=== PATIENT | female | born 1980 | race Hispanic/Latino ===

== ENCOUNTER 2019-06-10 02:03 | Emergency (ER) | payer OTHER, SELFPAY ==
[2019-06-10] MEDS ORDERED: NA CHLORIDE 0.9% 1,000 ML ONE (02:51)
[2019-06-10] MEDS ORDERED: ONDANSETRON 4 MG/2 ML VIAL ONE (02:51)
[2019-06-10] MEDS ORDERED: MEPERIDINE HCL 25 MG/0.5 ML ONE (02:51)
[2019-06-10 02:55] LABS: Absolute Lymphocytes (CBC) 1.6 K/uL (0.7-4.9); Basophils % 0.5 % (0-1.3); Hematocrit 35.9 % (36.0-45.0); Lymphocytes % 17.8 % (15.3-44.8); RBC Red Blood Cell Count 4.21 M/uL (3.86-4.86)
[2019-06-10 03:11] LABS: Bilirubin Direct 0.1 mg/dL (0-0.2); Bilirubin Total 0.2 mg/dL (0.2-1.0); Protein, Total 7.6 g/dL (6.4-8.2)
[2019-06-10 05:32] LABS: Urine Culture Reflex Order REFLEXED; Urine RBC <5 /HPF (NONE SEEN)
[2019-06-10 05:33] LABS: Urine Bacteria >50 /HPF (<20)
--- NOTE | 2019-06-10 05:43 | ER ---
Nurse's Notes [facility] Name: Zeynep Negron Age: 39 yrs Sex: Female : 1980 Arrival Date: 06/10/2019 Time: 02:14 Bed 14 Private MD: Diagnosis: Upper abdominal pain, unspecified Presentation: 06/10 02:28 Presenting complaint: Patient states: she is having severe abdominal pain since approx bb 0100 this morning with vomiting, the pain is in the lower abdomen is constant and currently is 10/10. Transition of care: patient was not received from another setting of care. Onset of symptoms was June 10, 2019. Risk Assessment: Do you want to hurt yourself or someone else? Patient reports no desire to harm self or others. Initial Sepsis Screen: Does the patient meet any 2 criteria? No. Patient's initial sepsis screen is negative. Does the patient have a suspected source of infection? No. Patient's initial sepsis screen is negative. Care prior to arrival: None. 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 - Social history:: Smoking status: Patient uses tobacco products, denies chronic smoking, but will smoke occasionally. - Ebola Screening: : No symptoms or risks identified at this time. - Family history:: not pertinent. - Hospitalizations: : No recent hospitalization is reported. Screenin:00 Abuse screen: Denies threats or abuse. Nutritional screening: No deficits noted. ea Tuberculosis screening: No symptoms or risk factors identified. Fall Risk None identified. Assessment: 02:43 General: Appears uncomfortable, Behavior is appropriate for age. Pain: Complains of ea pain in right lower quadrant and left lower quadrant. Neuro: Level of Consciousness is awake, alert, obeys commands, Oriented to person, place, time, situation. Respiratory: Airway is patent Respiratory effort is even, unlabored, Respiratory pattern is regular, symmetrical. GI: Bowel sounds present X 4 quads. Abd is soft and non tender X 4 quads. Derm: Skin is pink, warm \T\ dry. 03:30 Reassessment: Patient and/or family updated on plan of care and expected duration. Pain ea level reassessed. Patient is alert, oriented x 3, equal unlabored respirations, skin warm/dry/pink. 04:30 Reassessment: Patient and/or family updated on plan of care and expected duration. Pain ea level reassessed. Patient is alert, oriented x 3, equal unlabored respirations, skin warm/dry/pink. 05:00 Reassessment: Patient and/or family updated on plan of care and expected duration. Pain ea level reassessed. Patient is alert, oriented x 3, equal unlabored respirations, skin warm/dry/pink. 06:52 Reassessment: Patient and/or family updated on plan of care and expected duration. Pain ea level reassessed. Patient is alert, oriented x 3, equal unlabored respirations, skin warm/dry/pink. Discharge instruction given to patient, verbalized the understanding of instruction. Pt left ED ambulatory accompanied by significant other. Patient states feeling better. Vital Signs: 02:29 BP 132 / 97; Pulse 120; Resp 16 S; Temp 98.9(O); Pulse Ox 99% on R/A; Weight 74.84 kg bb (R); Height 5 ft. 4 in. (162.56 cm) (R); Pain 10/10; 03:54 BP 117 / 92; Pulse 97; Resp 18; Pulse Ox 100% ; ea 04:00 BP 115 / 90; Pulse 102; Resp 18; Pulse Ox 97% ; ea 05:00 BP 120 / 87; Pulse 90; Resp 18; Pulse Ox 99% on R/A; ea 05:00 BP 118 / 80; Pulse 87; Resp 18; Temp 97.8; Pulse Ox 99% ; ea 02:29 Body Mass Index 28.32 (74.84 kg, 162.56 cm) bb ED Course: 02:14 Patient arrived in ED. ag3 02:26 Finn Hare MD is Attending Physician. rn 02:29 Triage completed. bb 02:29 Arm band placed on Patient placed in an exam room, on a stretcher, on pulse oximetry. bb Family accompanied patient. 02:43 Carlie Farley, EDWIN is Primary Nurse. ea 03:00 Patient has correct armband on for positive identification. Bed in low position. Call ea light in reach. Side rails up X2. 06:50 IV discontinued, intact, bleeding controlled, No redness/swelling at site. Pressure ea dressing applied. 06:53 No provider procedures requiring assistance completed. ea 20:28 CT Abd/Pelvis - IV Contrast Only In Process Unspecified. EDMS Administered Medications: 02:55 Drug: Demerol 25 mg {Note: RASS 1.} Route: IVP; Site: right antecubital; ea 03:30 Follow up: Response: No adverse reaction; Pain is decreased ea 02:56 Drug: Zofran 4 mg Route: IVP; Site: right antecubital; ea 03:30 Follow up: Response: No adverse reaction ea 02:57 Drug: NS 0.9% 1000 ml Route: IV; Rate: 1000 ml; Site: right antecubital; ea 03:30 Follow up: Response: No adverse reaction; IV Status: Completed infusion; IV Intake: ea 1000ml Intake: 03:30 IV: 1000ml; Total: 1000ml. ea Outcome: 05:43 Discharge ordered by . rn 06:54 Discharged to home ambulatory, with significant other. ea 06:54 Condition: stable 06:54 Discharge instructions given to patient, Instructed on discharge instructions, follow up and referral plans. medication usage, Demonstrated understanding of instructions, follow-up care, medications, Prescriptions given X 2. 07:00 Patient left the ED. ea Signatures: Dispatcher [employer] EDMS Asmita Aguirre RN RN bb Nieto, Roman, MD MD rn Antunez, Elena, RN RN ea Gomez, Alice ag3
--- NOTE | 2019-06-10 05:44 | EDPHYS ---
Physician Documentation [facility] Name: Zeynep Negron Age: 39 yrs Sex: Female : 1980 Arrival Date: 06/10/2019 Time: 02:14 Bed 14 Private MD: ED Physician Finn Hare HPI: 06/10 02:39 This 39 yrs old Female presents to ER via Ambulatory with complaints of rn Abdominal Pain. 02:39 The patient presents with abdominal pain that is diffuse. Onset: The symptoms/episode rn began/occurred today. The symptoms do not radiate. Associated signs and symptoms: Pertinent positives: nausea and vomiting, diarrhea, Pertinent negatives: blood in stools, fever, shortness of breath, vaginal discharge, vomiting blood. The symptoms are described as crampy, sharp. Modifying factors: The symptoms are alleviated by nothing, the symptoms are aggravated by touching the area. Severity of pain: At its worst the pain was moderate in the emergency department the pain is unchanged. The patient has experienced similar episodes in the past. Reports has Crohns', doesn't take medication because of lack of money, reports sudden onset of diffuse abd pain with vomiting and diarrhea, this AM, approx 2 hours ago. NO trauma. + subjective fever. . 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 - Social history:: Smoking status: Patient uses tobacco products, denies chronic smoking, but will smoke occasionally. - Ebola Screening: : No symptoms or risks identified at this time. - Family history:: not pertinent. - Hospitalizations: : No recent hospitalization is reported. ROS: 02:39 Constitutional: + subjective fever Eyes: Negative for injury, pain, redness, and varnisher, Neck: Negative for injury, pain, and swelling, Cardiovascular: Negative for chest pain, palpitations, and edema, Respiratory: Negative for shortness of breath, cough, wheezing, and pleuritic chest pain, Abdomen/GI: + abd pain with nausea/vomiting/diarrhea Back: Negative for injury and pain, : Negative for injury, bleeding, discharge, and swelling, MS/Extremity: Negative for injury and deformity, Skin: Negative for injury, rash, and discoloration, Neuro: Negative for headache, weakness, numbness, tingling, and seizure. Exam: 02:39 Constitutional: This is a well developed, well nourished patient who is awake, alert, rn appears uncomfortable Head/Face: Normocephalic, atraumatic. Eyes: Pupils equal round and reactive to light, extra-ocular motions intact. Lids and lashes normal. Conjunctiva and sclera are non-icteric and not injected. Cornea within normal limits. Periorbital areas with no swelling, redness, or edema. ENT: MMM Neck: Trachea midline, no thyromegaly or masses palpated, and no cervical lymphadenopathy. Supple, full range of motion without nuchal rigidity, or vertebral point tenderness. No Meningismus. Cardiovascular: tachycardic, regular Respiratory: No increased work of breathing, no retractions or nasal flaring. Abdomen/GI: soft, + tender in all 4 quadrants, no rebound MS/ Extremity: Pulses equal, no cyanosis. Neurovascular intact. Full, normal range of motion. Equal circumference. Neuro: Awake and alert, GCS 15, oriented to person, place, time, and situation. Cranial nerves II-XII grossly intact. Motor strength 5/5 in all extremities. Sensory grossly intact. Cerebellar exam normal. Vital Signs: 02:29 BP 132 / 97; Pulse 120; Resp 16 S; Temp 98.9(O); Pulse Ox 99% on R/A; Weight 74.84 kg bb (R); Height 5 ft. 4 in. (162.56 cm) (R); Pain 10/10; 03:54 BP 117 / 92; Pulse 97; Resp 18; Pulse Ox 100% ; ea 04:00 BP 115 / 90; Pulse 102; Resp 18; Pulse Ox 97% ; ea 05:00 BP 120 / 87; Pulse 90; Resp 18; Pulse Ox 99% on R/A; ea 05:00 BP 118 / 80; Pulse 87; Resp 18; Temp 97.8; Pulse Ox 99% ; ea 02:29 Body Mass Index 28.32 (74.84 kg, 162.56 cm) MDM: 02:26 Patient medically screened. rn 05:42 Differential diagnosis: appendicitis, cholecystitis, Cholelithiasis, diverticulitis, rn non-specific abd pain, Ureterolithiasis, urinary tract infection, crohn's. Data reviewed: vital signs, nurses notes, lab test result(s), radiologic studies, CT scan, and as a result, I will discharge patient. Counseling: I had a detailed discussion with the patient and/or guardian regarding: the historical points, exam findings, and any diagnostic results supporting the discharge/admit diagnosis, lab results, radiology results, the need for outpatient follow up, to return to the emergency department if symptoms worsen or persist or if there are any questions or concerns that arise at home. Response to treatment: the patient's symptoms have markedly improved after treatment, and as a result, I will discharge patient. Special discussion: I discussed with the patient/guardian in detail that at this point there is no indication for admission to the hospital. It is understood, however, that if the symptoms persist or worsen the patient needs to return immediately for re-evaluation. ED course: Neg CT for acute findings, will dc home with zofran/pain meds/bentyl and return precautions.. 06/10 02:38 Order name: Basic Metabolic Panel 06/10 02:38 Order name: CBC with Diff 06/10 02:38 Order name: Creatinine for ornamenter 06/10 02:38 Order name: Hepatic Function 06/10 02:38 Order name: Lipase 06/10 02:38 Order name: Urine Microscopic Only 06/10 02:38 Order name: CT Abd/Pelvis - IV Contrast Only 06/10 03:05 Order name: CBC with Automated Diff; Complete Time: 05: [facility] 06/10 03:10 Order name: Creatinine (Radiology Only); Complete Time: : [facility] 06/10 03:12 Order name: Basic Metabolic Panel; Complete Time: 05: [facility] 06/10 03:12 Order name: Liver (Hepatic) Function; Complete Time: 05: [facility] 06/10 03:12 Order name: Lipase; Complete Time: 05: [facility] 06/10 05:34 Order name: Urine Microscopic Only [facility] 06/10 02:38 Order name: IV Saline Lock; Complete Time: 02:57 06/10 02:38 Order name: Labs collected and sent; Complete Time: 02:57 06/10 02:38 Order name: Urine Test (obtain specimen); Complete Time: 03:57 rn 06/10 02:38 Order name: Urine Dipstick-Ancillary (obtain specimen); Complete Time: 03:57 rn Administered Medications: 02:55 Drug: Demerol 25 mg {Note: RASS 1.} Route: IVP; Site: right antecubital; ea 03:30 Follow up: Response: No adverse reaction; Pain is decreased ea 02:56 Drug: Zofran 4 mg Route: IVP; Site: right antecubital; ea 03:30 Follow up: Response: No adverse reaction ea 02:57 Drug: NS 0.9% 1000 ml Route: IV; Rate: 1000 ml; Site: right antecubital; ea 03:30 Follow up: Response: No adverse reaction; IV Status: Completed infusion; IV Intake: ea 1000ml Disposition: 06/10/19 05:43 Discharged to Home. Impression: Upper abdominal pain, unspecified. - Condition is Stable. - Discharge Instructions: Abdominal Pain, Adult. - Prescriptions for Zofran ODT 4 mg Oral tablet,disintegrating - place 1 tablet by TRANSLINGUAL route every 8 hours; 2 tablet. Bentyl 20 mg Oral Tablet - take 1 tablet by ORAL route every 6 hours As needed; 20 tablet. - Medication Reconciliation Form, Thank You Letter, Antibiotic Education, Prescription Opioid Use form. - Follow up: Private Physician; When: As needed; Reason: Recheck today's complaints, Re-evaluation by your physician. - Problem is new. - Symptoms have improved. Signatures: Dispatcher [employer] EDMS Asmita Aguirre RN RN bb Nieto, Roman, MD MD rn Antunez, Elena, RN RN ea Corrections: (The following items were deleted from the chart) 07:00 05:43 06/10/2019 05:43 Discharged to Home. Impression: Upper abdominal pain, ea unspecified. Condition is Stable. Forms are Medication Reconciliation Form, Thank You Letter, Antibiotic Education, Prescription Opioid Use. Follow up: Private Physician; When: As needed; Reason: Recheck today's complaints, Re-evaluation by your physician. Problem is new. Symptoms have improved. rn
[2019-06-10 07:21] VITALS: BP 118/80; TEMP 97.8; O2SAT 99
--- NOTE | 2019-06-11 12:04 | RAD REPORT ---
EXAM DESCRIPTION: CT Abdomen and Pelvis With Intravenous Contrast CLINICAL HISTORY: The patient is 39 years old and is Female; hx of crohns;Abd pain TECHNIQUE: Axial computed tomography images of the abdomen and pelvis with intravenous contrast. S agittal and coronal reformatted images were created and reviewed. This CT exam was performed using one or more of the following dose reduction techniques: automated exposure control, adjustment of t he mA and/or kV according to patient size, and/or use of iterative reconstruction technique. COMPARISON: No relevant prior studies available. FINDINGS: LUNG BASES: Unremarkable. No mass. No consolidation. ABDOMEN: LIVER: Unremarkable. No mass. GALLBLADDER AND BILE DUCTS: Surgical clips are present in the right upper quadrant, consistent w ith previous cholecystectomy. PANCREAS: No ductal dilation. No mass. SPLEEN: Unremarkable. ADRENALS: Unremarkable. No mass. KIDNEYS AND URETERS: Right renal cysts are present, the largest of which measures approximately 1.1 cm. No follow-up imaging is recommended. The kidneys enhance symmetrically. No hydronephrosis or hydroureter of either kidney is seen. STOMACH AND BOWEL: Postsurgical change of the stomach consistent with a gastric sleeve is noted. The small bowel is normal in caliber. A moderate amount of stool is present throughout the colon. Th ere is no mucosal thickening or evidence of bowel obstruction. PELVIS: APPENDIX: No findings to suggest acute appendicitis. BLADDER: Unremarkable. No mass. REPRODUCTIVE: Suggestion of a few small uterine fibroids are present. A 1.6 cm left ovarian cyst is present. No follow-up imaging is recommended. The right ovary is unremarkable. ABDOMEN and PELVIS: INTRAPERITONEAL SPACE: Unremarkable. No free air. No significant fluid collection. BONES/JOINTS: No acute fracture. SOFT TISSUES: The soft tissues are normal. VASCULATURE: Unremarkable. No abdominal aortic aneurysm. LYMPH NODES: Unremarkable. No enlarged lymph nodes. IMPRESSION: No acute findings on this contrasted CT of the abdomen and pelvis to explain the patient 's symptoms. Electronically signed by: Mar Hartmann MD 06/10/2019 5:27 AM CDT Due to temporary technical issues with the PACS/Fluency reporting system, reports are being signed by the in house radiologist as a courtesy to ensure prompt reporting. The interpreting radiologist is f ully responsible for the content of the report.
== END 2019-06-10 07:00 | disposition home or self-care (01) ==
LOC: ER 02:03
DX: R10.10 Upper abdominal pain, unspecified (principal); Z72.0 Tobacco use; Z88.5 Allergy status to narcotic agent
CPT/HCPCS: 36415; 74177; 80048; 80076; 81015; 83690; 85025; 87077; 87086; 87088; 87186; 96361; 96374; 96375; 99284; J2175; J2405; J7030; Q9967

== ENCOUNTER 2021-12-15 05:11 | Emergency (ER) | payer SELFPAY ==
--- OUTSIDE RECORDS SUMMARY | 2021-12-15 05:15 | XMS REPORT | Continuity of Care Document ---
:1980 Author Organization [facility] t Address Critical access hospital[address] Egan [address] [place] [id number] Care Team Providers Name Role Phone AHMED Attending Clinician Unavailable Payers Payer Name Policy Type Policy Number Effective Date Expiration Date S ource PPO/EPO - BCBS [id number] Problems This patient has no known problems. Allergies, Adverse Reactions, Alerts This patient has no known allergies or adverse reactions. Medications This patient has no known medications. Procedures This patient has no known procedures. Encounters Start End Encounter Admission Attending Care Care Encounter Source Date/Time Date/Time Type Type Clinicians Facility Department ID 2021-12-08 2021-12-08 Outpatient [facility] [id number] [facility] 12:51:23 16:09:32 [facility] [employer] 2021-11-06 2021-11-06 Outpatient [facility] [id number] [facility] 10:19:35 12:44:56 [facility] [employer] 2021-10-13 2021-10-13 Outpatient [facility] [id number] [facility] 12:12:38 14:57:55 [facility] [employer] 2021-09-29 2021-09-29 [facility] [id number] [facility] 12:57:38 14:11:45 [facility] [employer] 2021-09-15 2021-09-15 Outpatient [facility] [id number] [facility] 13:19:37 15:41:16 [facility] [employer] 2021-06-19 2021-06-19 Outpatient [facility] [id number] [facility] 08:20:05 15:26:53 [facility] [employer] Results Test Description Test Time Test Comments Results Result Comments Source SARS-CoV-2 (COVID-19), RT-PCR/TMA 2021-10-08 16:26:54 Test Item Value Reference Range Interpretation Comme nts SARS-CoV-2 INTERPRETATION NEGATIVE SEE NOTE S ARS-CoV-2 RNA NOT (test code = 44251) DETECTED Negative results do not preclude SARS-C oV-2 infection and should notb e used as the sole basis for patient management deci sions. Negativeresults must be combined with clinical o bservations, patient history ,and epidemiological information. Optimum specime n types and timingfor peak viral levels during infectio ns caused by SARS-CoV-2 have notbeen determined. Col lection of multiple specim ens or types ofspecimens may be necessary to detect virus. I mproper specimencollect ion and handling, sequence variab ility under primers/probes, or organism present below t he limit of detection may l ead to falsenegative r esults. Positive and negative pr edictive values oftesting are h ighly dependent on prevalence. False negative testresults are more likely when prevalence is h igh. SOURCE (test code = 78631) NASOPHARYNGEAL Note: Methodology is Salma Karissa Real-Time RT-PCR. The expected r esult or reference range is NEGATIVE (Not Detected). For more information regarding COVID -19 testing to include clinica linformation, methodology det ail, intended use, FDA author ization andrecommended fact sheets for patients or a lthcare providers, see NewTest Announcement: S ARS-CoV-2 (COVID-19) by N AAT at URL below (note,fact shee ts are provided by method given in report:https:// www.eSentire/c linicians/enid t-communications/ Alternatively, see downloadable PDF fact sheet at:https://www. eSentire/COVID -19-RT-PCR UNLESS OTHERWISE INDIC ATED, ALL TESTING PERFORMED [facility], I [place]. [address] [place] [address] LABORATORY DIRE CTOR: OMER CRESPO M.D. CLIA NUMBER [id number] [place]. [id number] BREAST STEREO CORE BIOPSY [id number] 12:46:25- BREAST STEREO CORE BIOPSY LEFTSTEREOTACTIC GUIDED BIOPSY LEFT BREAST WITH MARKING DEVICE INSERTED: 10/30/2019CLINICAL: Stereotactic biopsy, left breast. Comparison is made to exam dated 10/10/2019 mammogram - [facility]. A stereotactic guided biopsy was performed for the oval mass located in the left breast at 9 o'clock, posterior depth. This was described on the previous mammography report. The skin was prepped in the usual manner. Local anesthetic was administered to the access site. The abnormality was approached from the craniocaudal aspect using an upright mammography unit. A biopsy needle was placed adjacent to the abnormality under computer guidance and confirmatory stereotactic mammography images were obtained to document needle placement. Once the needle was docume nted to be in the correct location, a specimen was obtained using an automated biopsy gun. A clip was inserted into the biopsy cavity. The specimen was sent to the laboratory for pathological analysis. IMPRESSION: STEREOTACTIC GUIDED BIOPSYStereotactic guided biopsy of the mass in the left breast at 9 o'clock, posterior depth, was successful with no apparent post procedure complications. Waiting for pathology results. A final report will be issued when these become available. Of note, previousdiagnostic report has 6 month follow up for the right breast findings. ADDENDUM:PATHOLOGY INDICATES:Fibroadenoma in the left breast at 9 o'clock, 10 cm from nipple. Benign, BI-RADS Category 2.RECOMMEND ATION:Follow up ultrasound in six month is recommended to milly Wan M.D.ss,qn/:11/06/2019 12:46:25 Attending Technologist: Raquel Yeung , [facility]ITALImaging Technologist: Nova MAGUIRE, [facility]CR[facility] HOSPITALletter sent: Benign BiopsyBREAST STEREO CORE BIOPSY [id number] 12:46:25- BREAST STEREO CORE BIOPSY LEFTSTEREOTACTIC GUIDED BIOPSY LEFT BREAST WITH MARKING DEVICE INSERTED: 10/30/2019CLINICAL: Stereotactic biopsy, left breast. Comparison is made to exam dated 10/10/2019 [facility]. A stereotactic guided biopsy was performed for the oval mass located in the left breast at 9 o'clock, posterior depth. This was described on the previous mammography report. The skin was prepped in the usual manner. Local anesthetic was administered to the access site. The abnormality was approached from the craniocaudal aspect using an upright mammography unit. A biopsy needle was placed adjacent to the abnormality under computer guidance and confirmatory stereotactic mammography images were obtained to document needle placement. Once the needle was docume nted to be in the correct location, a specimen was obtained using an automated biopsy gun. A clip was inserted into the biopsy cavity. The specimen was sent to the laboratory for pathological analysis. IMPRESSION: STEREOTACTIC GUIDED BIOPSYStereotactic guided biopsy of the mass in the left breast at 9 o'clock, posterior depth, was successful with no apparent post procedure complications. Waiting for pathology results. A final report will be issued when these become available. Of note, previousdiagnostic report has 6 month follow up for the right breast findings. ADDENDUM:PATHOLOGY INDICATES:Fibroadenoma in the left breast at 9 o'clock, 10 cm from nipple. Benign, BI-RADS Category 2.RECOMMEND ATION:Follow up ultrasound in six month is recommended to milly Wan M.D.ss,qn/:11/06/2019 12:46:25 Attending Technologist: Raquel MAGUIRE, [facility]-FWImaging Technologist: Nova MAGUIRE, [facility]-FWletter sent: Benign BiopsyDIAG MAMM LEFT JANEE CAD [id number] 09:22:40 - DIAG MAMM LEFT JANEE CAD DIGITALUNILATERAL LEFT DIGITAL DIAGNOSTIC MAMMOGRAM 3D/2D WITH CAD: 020CLINICAL: Asymptomatic. Digital breast tomosynthesis was performed in addition to routine CC andMLO views. Current mammographic images were evaluated by either a CreatorBox M-Vu or a SmartKemgic ImageChecker CAD (computer aided detection system). Comparison is made to exam dated 08/31/2019 mammogram - [facility]. The tissue of the left breast is heterogeneously dense. This may lower the sensitivity of mammography. There is an equal density 1.5 cm lobulated focal asymmetry in the inner central left breast (9 o'clock, 10 cm from the nipple) at posterior depth (LSCC 24, LSLM 19). No other significant findings. IMPRESSION: INCOMPLETE: ADDITIONAL IMAGING EVALUATION NEEDEDUltrasound was subsequently performed for further evaluation.Idalia bhakta/:10/11/2019 09:22:40 Entry: - 10/11/2019 11:17:07Imaging Technologist: Jackie MAGUIRE, [facility]amm[facility] BI-RADS: 0 Incomplete: Additional Imaging Evaluation NeededDIAG MAMM LEFT JANEE CAD [id number] 09:22:40 - DIAG MAMM LEFT JANEE CAD DIGITALUNILATERAL LEFT DIGITAL DIAGNOSTIC MAMMOGRAM 3D/2D WITH CAD: 10/10/2019CLINICAL: Asymptomatic. Digital breast tomosynthesis was performed in addition to routine CC andMLO views. Current mammographic images were evaluated by either a CreatorBox M-Vu or a Rival IQ ImageMaya's Momer CAD (computer aided detection system). Comparison is made to exam dated 08/31/2019 mammogram - [facility]. The tissue of the left breast is heterogeneously dense. This may lower the sensitivity of mammography. There is an equal density 1.5 cm lobulated focal asymmetry in the inner central left breast (9 o'clock, 10 cm from the nipple) at posterior depth (LSCC 24, LSLM 19). No other significant findings. IMPRESSION: INCOMPLETE: ADDITIONAL IMAGING EVALUATION NEEDEDUltrasound was subsequently performed for further evaluation.Idalia bhakta/:10/11/2019 09:22:40 Entry: - 10/11/2019 11:17:07Imaging Technologist: Jackie MAGUIRE, [facility]-FWMammogram BI-RADS: 0 Incomplete: Additional Imaging Evaluation Needed BREAST ULTRASOUND [id number] 09:22:11- BREAST ULTRASOUND BILATERALULTRASOUND OF BOTH BREASTS AND BOTH AXILLA: 10/10/2019CLINICAL: Abnormal mammogram. Comparison is made to exams dated 10/10/2019 mammogram - [facility] and 08/31/2019 mammogram - [facility]. Real- time ultrasound of both breasts and both axilla was performed. RIGHT BREAST:There is a 9 x 6 x 8 mm oval homogenously hypoechoic mass with a circ umscribed margin in the right breast at 11 o'clock, middle depth, 7 cm from the nipple. No internalvascularity seen with color flow imaging. This correlates with mammography findings seen on recent screening mammography. LEFT BREAST:No sonographic correlate is identified at 9 o'clock, 10 cm from the nipple, to account for the focal asymmetry seen on mammography.A benign 7 mm cyst is noted in the left breast at 10 o'clock, posterior depth, 9 cm from the nipple. Additional scattered benign subcentimeter cysts are seen in both breasts. There is no bilateral axillary lymphadenopathy seen.IMPRESSION: SUSPICIOUS OF MALIGNANCY - FOLLOW-UP RECOMMENDED1. No sonographic correlate was identified for the 1.5 cm lobulated focal asymmetry seen on mammogram in the inner central left breast (9 o'clock, 10 cm from the nipple) at posterior depth (LSCC 24, LSLM 19). This finding is at low suspicion for malignancy. A tomosynthesis guided biopsy is recommended (consider a CC approach). (Discussed with the patient on 10/11/2019 at 8:44 AM). 2. The 9 mm oval circumscribed mass in the right breast at 11 o'clock, 7 cm from the nipple, is probably benign. A follow-up ultrasound in 6 months of the right breastmass is recommended. However, if the recommended biopsy mentioned in #1 above yields a surgical lesion on final pathology, then ultrasound guided biopsy of this mass may also then be considered at that time (as opposed to short interval ultrasound follow up). Findings and recommendations were discussed with the patient. Idalia Reddy D.O. al/:10/11/2019 09:22:11 [employer] Crew Pusher: Katiana MAGUIRE,[facility]- FWletter sent: BIRADS 4/5 Biopsy Ultrasound BI-RADS: 4a Suspicious abnormality - low suspicion for malignancySCR MAMM BILATERAL JANEE CAD [id number] 11:05:50 - SCR MAMM BILATERAL JANEE CAD DIGITALBILATERAL DIGITAL SCREENING MAMMOGRAM 3D/2D WITH CAD: 08/31/2019CLINICAL: Asymptomatic. Digital breast tomosynthesis was performed in addition to routine CC and MLO views. Current mammographic images were evaluated by either a CreatorBox M-Vu or a R[employer] IQ ImageChecker CAD (computer aided detection system). No prior exams were available for comparison. The tissue of both breasts is heterogeneously dense. This may lower the sensitivity of mammography. There is a mass in the right breast at 11 o'clock middle depth. There is a focal asymmetry in the left breast at9 o'clock posterior depth. No other significant masses or calcifications are seen in either breast. IMPRESSION: INCOMPLETE: ADDITIONAL IMAGING EVALUATION NEEDEDThe mass in the right breast at 11 o'clock middle depth is indeterminate. An ultrasound is recommended. The focal asymmetry in the left breast at 9 o'clock posterior depth is indeterminate. 3D imaging, spot compression, lateral, and additional views as well as a possible ultrasound are recommended. Randall Daniels M.D. et/:09/03/2019 11:05:50 [employer] Crew Pusher: Daniella Chua MM, [facility] Mammographyletter sent: Additional Imaging Mammogram BI-RADS: 0 Incomplete: Additional Imaging Evaluation Needed
[2021-12-15] MEDS ORDERED: NA CHLORIDE 0.9% 1,000 ML ONE (06:12)
[2021-12-15] MEDS ORDERED: METOCLOPRAMIDE 10 MG/2mL INJ ONE (06:12)
[2021-12-15] MEDS ORDERED: DIPHENHYDRAMINE 50 MG/ML VIAL ONE (06:12)
[2021-12-15] MEDS ORDERED: MORPHINE 4 MG/ML SYR ONE (06:12)
[2021-12-15] MEDS ORDERED: FOLIC ACID 5 MG/ML VIAL ONE (06:13)
[2021-12-15] MEDS ORDERED: NA CHLORIDE 0.9% 500 ML ONE (06:13)
[2021-12-15 06:18] LABS: Absolute Lymphocytes (CBC) 2.1 K/uL (0.7-4.9); Hematocrit 39.2 % (36.0-45.0); Lymphocytes % 35.4 % (15.3-44.8); MPV 7.5 fL (7.6-11.3)
[2021-12-15 06:24] LABS: Protime INR 0.98
[2021-12-15 06:25] LABS: Urine Blood Negative (Negative); Urine Glucose Negative (Negative); Urine Protein Negative (Negative); Urine Specific Gravity >=1.030 (1.005-1.030)
[2021-12-15 06:50] LABS: Urine Specific Gravity/Preg >1.030 (1.005-1.030)
[2021-12-15 06:53] LABS: BUN Blood Urea Nitrogen 16 mg/dL (7-18); Bicarbonate 27 mmol/L (21-32); Glucose Level 99 mg/dL (74-106); Potassium 3.6 mmol/L (3.5-5.1); Sodium Level 139 mmol/L (136-145)
[2021-12-15 06:54] LABS: Troponin High Sensitivity < 3.00 pg/mL (<58.9)
--- NOTE | 2021-12-15 07:30 | RAD REPORT ---
EXAM DESCRIPTION: RAD - Chest Single View - 12/15/2021 6:07 am CLINICAL HISTORY: COUGH COMPARISON: Portable 03/01/2011 TECHNIQUE: AP portable chest image was obtained 12/15/2021 6:07 am . FINDINGS: Lungs are clear. Heart and vasculature are normal. No measurable pleural effusion and no p neumothorax. No acute bony abnormality seen. No acute aortic findings suspected. IMPRESSION: No acute cardiopulmonary process.
--- NOTE | 2021-12-15 07:34 | RAD REPORT ---
EXAM DESCRIPTION: CT - Head Brain Wo Cont - 12/15/2021 7:25 am CLINICAL HISTORY: HEADACHE, right-side COMPARISON: Head angio dated 12/15/2021Head angio dated 12/15/2021; Head Brain Wo Cont dated 6 TECHNIQUE: Axial 5 mm thick images of the head were obtained without IV contrast. All CT scans are performed using dose optimization technique as appropriate and may include automated exposure control or mA/KV adjustment according to patient size. FINDINGS: No intracranial hemorrhage, mass, edema or shift of mid-line structures. No acute infarcti on changes seen. No abnormal extra-axial fluid collections. Ventricles are normal. Mastoid air cells and visualized portions of the paranasal sinuses are clear. No acute bony findings. IMPRESSION: Negative non-contrast CT head examination.
--- NOTE | 2021-12-15 07:37 | RAD REPORT ---
EXAM DESCRIPTION: CT - Neck Angio - 12/15/2021 7:26 am CLINICAL HISTORY: HEADACHE, right-sided neck pain TECHNIQUE: During dynamic enhancement using nonionic IV contrast, axial 2 mm thick images of the nec k were obtained. Sagittal and axial reconstruction images were generated using MIP technique and revi ewed. All CT scans are performed using dose optimization technique as appropriate and may include automated exposure control or mA/KV adjustment according to patient size. COMPARISON: CT head same date FINDINGS: No aneurysm or vascular malformation identified. No carotid or vertebral dissection. No aortic arch or great vessel origin abnormality seen. Patient has normal variant bovine arch config uration. Minimal tortuosity of each internal carotid artery, left vertebral artery origin and right c ommon carotid artery origin noted. No stenosis, vasculitis or other significant carotid artery findin g. No focal abnormality of either vertebral artery. Basilar artery is normal. IMPRESSION: Negative CT angio neck examination.
--- NOTE | 2021-12-15 07:39 | RAD REPORT ---
EXAM DESCRIPTION: CT - Head angio - 12/15/2021 7:25 am CLINICAL HISTORY: HEADACHE, right-sided TECHNIQUE: During dynamic enhancement using nonionic IV contrast, axial 1 millimeter thick images of the head were obtained. Sagittal and axial reconstruction images were generated using MIP technique and reviewed. All CT scans are performed using dose optimization technique as appropriate and may include automated exposure control or mA/KV adjustment according to patient size. COMPARISON: CT head same date, CT angio neck same date FINDINGS: No aneurysm or vascular malformation identified. Major venous sinuses are patent. No stenosis, named branch occlusion, vasculitis or other significant vascular finding identifiable. Anterior communicating artery is present. IMPRESSION: Negative CT angio head examination.
[2021-12-15] MEDS ORDERED: KETOROLAC 30 MG/ML INJ ONE (08:02)
[2021-12-15] MEDS ORDERED: dexAMETHasone 10 MG/ML VIAL ONE (08:02)
--- NOTE | 2021-12-15 08:40 | ER ---
Nurse's Notes [facility] Name: Zeynep Negron Age: 41 yrs Sex: Female : 1980 Arrival Date: 12/15/2021 Time: 05:15 Bed 8 Private MD: Diagnosis: Headache Presentation: 12/15 05:27 Chief complaint: Patient states: The patient woke up at 0230 with a headache. it became st1 10/10 pain with nausea and vomiting around 0500. Coronavirus screen: Vaccine status: Patient reports receiving the 2nd dose of the covid vaccine. Pfizer. Ebola Screen: No symptoms or risks identified at this time. Initial Sepsis Screen: Does the patient meet any 2 criteria? No. Patient's initial sepsis screen is negative. Does the patient have a suspected source of infection? No. Patient's initial sepsis screen is negative. Risk Assessment: Do you want to hurt yourself or someone else? Patient reports no desire to harm self or others. Onset of symptoms was December 15, 2021. 05:27 Method Of Arrival: Ambulatory st1 05:27 Acuity: JED 3 st1 Triage Assessment: 05:32 Headache History: The patient has had previous headaches and this one is similar to st1 previous episodes. General: Appears in no apparent distress. uncomfortable, slender, well groomed, well developed, Behavior is calm, cooperative. Pain: Complains of pain in right side of head Pain does not radiate. Pain currently is 10 out of 10 on a pain scale. Pain began gradually, 4 hours ago. Also complains of nausea. Neuro: No deficits noted. Cardiovascular: No deficits noted. Respiratory: No deficits noted. GI: Reports nausea, vomiting. Musculoskeletal: No deficits noted. 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 - Social history:: Smoking status: Patient denies any tobacco usage or history of. Patient/guardian denies using alcohol, street drugs, IV drugs, tobacco products. Screenin:35 Abuse screen: Denies threats or abuse. Nutritional screening: No deficits noted. st1 Tuberculosis screening: No symptoms or risk factors identified. Fall Risk None identified. No fall in past 12 months (0 pts). No secondary diagnosis (0 pts). No IV (0 pts). Ambulatory Aid- None/Bed Rest/Nurse Assist (0 pts). Gait- Normal/Bed Rest/Wheelchair (0 pts) Mental Status- Oriented to own ability (0 pts). Total Daven[place] Fall Scale indicates No Risk (0-24 pts). Assessment: 05:35 Reassessment: please see triage note. st1 05:36 Pain: Complains of pain in right side of the head Pain does not radiate. Pain currently st1 is 10 out of 10 on a pain scale. Quality of pain is described as aching, Pain began 4 hours ago. Is continuous, Alleviated by nothing. Aggravated by repositioning, Noted to be guarding, Also complains of nausea, Current management - is no interventions. Goal of pain control is to be pain free, sleep comfortably, perform activities of daily living. 07:30 Reassessment: Patient and/or family updated on plan of care and expected duration. Pain jh6 level reassessed. Patient is alert, oriented x 3, equal unlabored respirations, skin warm/dry/pink. Patient states feeling better. 07:30 Pain: Denies pain. Complains of pain in right parietal area and right base of the skull jh6 Pain currently is 4 out of 10 on a pain scale. Quality of pain is described as dull. Neuro: No deficits noted. 08:06 Reassessment: Patient states feeling better. Patient states symptoms have improved. jg9 Pain: Complains of pain in right parietal area Pain currently is 4 out of 10 on a pain scale. 09:00 Reassessment: Patient states feeling better. Patient states symptoms have improved. jg9 Patient report headache had subsided significantly /. Vital Signs: 05:27 BP 134 / 95; Pulse 73; Resp 16; Temp 98.1; Pulse Ox 96% on R/A; Weight 79.83 kg; Height st1 5 ft. 4 in. (162.56 cm); Pain 07/05; 07:00 BP 143 / 97; Pulse 69; Resp 17 S; Pulse Ox 100% on R/A; jg9 08:00 BP 134 / 84; Pulse 60; Resp 14; Pulse Ox 98% on R/A; Pain 4/10; jg9 09:00 BP 122 / 84; Pulse 65; Resp 15 S; Pulse Ox 98% on R/A; Pain 3/10; jg9 05:27 Body Mass Index 30.21 (79.83 kg, 162.56 cm) st1 Hollie Coma Score: 06:15 Eye Response: spontaneous(4). Verbal Response: oriented(5). Motor Response: obeys brian commands(6). Total: 15. NIH Stroke Scale Scores: 07:14 NIHSS Score: 0 brian ED Course: 05:15 Patient arrived in ED. es 05:21 Bill Whitaker MD is Attending Physician. [facility] 05:29 Triage completed. st1 05:32 Arm band placed on. st1 05:35 Hung Quijano, EDWIN is Primary Nurse. as6 05:35 Patient has correct armband on for positive identification. Bed in low position. Call st1 light in reach. Side rails up X 1. Pulse ox on. NIBP on. Door closed. Noise minimized. Lights dimmed. Verbal reassurance given. Head of bed elevated. 05:35 No provider procedures requiring assistance completed. st1 05:55 Inserted saline lock: 18 gauge in right antecubital area, using aseptic technique. as6 Blood collected. 06:03 Basic Metabolic Panel Sent. as6 06:03 CBC with Diff Sent. as6 06:03 PT-INR Sent. as6 06:03 Troponin HS Sent. as6 06:07 XRAY Chest (1 view) In Process Unspecified. EDMS 06:30 SARS-COV-2 RT PCR (Document "Date of Onset" if Symptomatic) Sent. as6 07:15 Kamaljit Sam PA is PHCP. jmm 07:25 CT Head Brain wo Cont In Process Unspecified. EDMS 07:25 CT Head Angio In Process Unspecified. EDMS 07:26 CT Neck Angio In Process Unspecified. EDMS 08:07 No apparent distress. Resting quietly. Pt visited by Friend. jg9 09:21 IV discontinued. jg9 Administered Medications: 06:30 Drug: NS 0.9% 500 ml Route: IV; Rate: bolus; Site: right antecubital; as6 07:30 Follow up: IV Status: Completed infusion; IV Intake: 500ml jg9 06:30 Drug: NS 0.9% 1000 ml Route: IV; Rate: 125 ml/hr; Site: right antecubital; as6 09:21 Follow up: IV Status: Completed infusion; IV Intake: 500ml jg9 06:30 Drug: foLIC Acid 1 mg Route: IVPB; Site: right antecubital; as6 08:05 Follow up: Response: No adverse reaction jg9 06:31 Drug: Benadryl (diphenhydrAMINE) 50 mg Route: IVP; Site: right antecubital; as6 08:05 Follow up: Response: No adverse reaction; Pain is decreased jg9 06:31 Drug: Reglan (metoCLOPramide) 10 mg Route: IVP; Site: right antecubital; as6 08:05 Follow up: Response: No adverse reaction; Nausea is decreased jg9 06:31 Drug: morphine 4 mg Route: IVP; Site: right antecubital; as6 08:05 Follow up: Response: No adverse reaction; Pain is decreased jg9 08:04 Drug: Decadron - Dexamethasone 10 mg Route: IVP; Site: right antecubital; jg9 09:20 Follow up: Response: No adverse reaction jg9 08:04 Drug: Ketorolac 30 mg Route: IVP; Site: right antecubital; jg9 09:19 Follow up: Response: No adverse reaction; Pain is decreased jg9 Intake: 07:30 IV: 500ml; Total: 500ml. jg9 09:21 IV: 500ml; Total: 1000ml. jg9 Outcome: 08:40 Discharge ordered by MD. schuster 09:21 Discharged to home ambulatory. jg9 09:21 Condition: stable 09:21 Discharge instructions given to patient, Instructed on discharge instructions, follow up and referral plans. Demonstrated understanding of instructions, follow-up care. 09:21 Patient left the ED. jg9 NIH Stroke Scale - NIH Stroke Score Date: 12/15/2021 Time: 07:14 Total Score = 0 1a. Level of Consciousness (LOC) - 0(Alert) 1b. Level of Consciousness (LOC) (Month \\T\\ Age) - 0(Both) 1c. LOC Commands (Open \\T\\ Closes Eyes/Public Safety Telecommunicator) - 0(Both) 2. Best Gaze (Lateral Gaze Paresis) - 0(Normal) 3. Visual Field Loss - 0(No visual loss) 4. Facial Palsy - 0(Normal) 5a. Left Arm: Motor (10-second hold) - 0(No drift) 5b. Right Arm: Motor (10-second hold) - 0(No drift) 6a. Left Leg: Motor (5-second hold - always test supine) - 0(No drift) 6b. Right Leg: Motor (5-second hold - always test supine) - 0(No drift) 7. Limb Ataxia (finger/nose \\T\\ heel/kevin - test with eyes open) - 0(Absent) 8. Sensory Loss (pinprick arms/legs/face) - 0(Normal) 9. Best Language: Aphasia (description/naming/reading) - 0(No aphasia) 10. Dysarthria (speech clarity - read or repeat words) - 0(Normal) 11. Extinction and Inattention (visual/tactile/auditory/spatial/personal) - 0(No abnormality) Initials: brian Signatures: Dispatcher [employer] EDBill Sagastume MD MD cha Mickail, Joel, PA PA jmm Salyer, Edna es Slawson, Ashby, RN RN as6 Mireya Da Silva, RN RN jh6 Mireya Mcarthur, RN RN jg9 Solange Huerta RN RN st1 Corrections: (The following items were deleted from the chart) 05:33 05:29 PMHx: Anemia; st1 st1 05:33 05:29 PSHx: Stented artery; st1 05:33 05:29 PSHx: Tonsillectomy; st1 st1 05:38 05:35 General: st st1
--- NOTE | 2021-12-15 08:41 | EDPHYS ---
Physician Documentation [facility] Name: Zeynep Negron Age: 41 yrs Sex: Female : 1980 Arrival Date: 12/15/2021 Time: 05:15 Bed 8 Private MD: LEONORA Physician Bill Whitaker HPI: 12/15 05:52 This 41 yrs old Female presents to ER via Ambulatory with complaints of brian Headache, RT side of head pain. 05:52 The patient complains of pain to the left frontal area, left side of the back of head brian and left occipital area. The patient describes the headache as constant, pounding. Onset: The symptoms/episode began/occurred at an unknown time. DURING SLEEP. Associated signs and symptoms: The patient has no apparent associated signs or symptoms. Severity of symptoms: At its worst the pain was moderate, in the emergency department the pain is unchanged. Headache History: The patient has had previous headaches and this one is similar to previous episodes. The symptoms are alleviated by nothing. the symptoms are aggravated by nothing. The patient has experienced a previous episode, approximately 15 years ago. 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 - Social history:: Smoking status: Patient denies any tobacco usage or history of. Patient/guardian denies using alcohol, street drugs, IV drugs, tobacco products. ROS: 06:13 Constitutional: Negative for fever, chills, and weight loss, Eyes: Negative for injury, brian pain, redness, and discharge, ENT: Negative for injury, pain, and discharge, Neck: Negative for injury, pain, and swelling, Cardiovascular: Negative for chest pain, palpitations, and edema, Respiratory: Negative for shortness of breath, cough, wheezing, and pleuritic chest pain, Abdomen/GI: Negative for abdominal pain, nausea, vomiting, diarrhea, and constipation, Back: Negative for injury and pain, : Negative for injury, bleeding, discharge, and swelling, MS/Extremity: Negative for injury and deformity, Skin: Negative for injury, rash, and discoloration, Psych: Negative for depression, anxiety, suicide ideation, homicidal ideation, and hallucinations, Allergy/Immunology: Negative for hives, rash, and allergies, Endocrine: Negative for neck swelling, polydipsia, polyuria, polyphagia, and marked weight changes, Hematologic/Lymphatic: Negative for swollen nodes, abnormal bleeding, and unusual bruising. 06:13 Neuro: Positive for headache. Exam: 06:13 Constitutional: This is a well developed, well nourished patient who is awake, alert, brian and in no acute distress. Head/Face: Normocephalic, atraumatic. Eyes: Pupils equal round and reactive to light, extra-ocular motions intact. Lids and lashes normal. Conjunctiva and sclera are non-icteric and not injected. Cornea within normal limits. Periorbital areas with no swelling, redness, or edema. ENT: Nares patent. No nasal discharge, no septal abnormalities noted. Tympanic membranes are normal and external auditory canals are clear. Oropharynx with no redness, swelling, or masses, exudates, or evidence of obstruction, uvula midline. Mucous membranes moist. Neck: Trachea midline, no thyromegaly or masses palpated, and no cervical lymphadenopathy. Supple, full range of motion without nuchal rigidity, or vertebral point tenderness. No Meningismus. Chest/axilla: Normal chest wall appearance and motion. Nontender with no deformity. No lesions are appreciated. Cardiovascular: Regular rate and rhythm with a normal S1 and S2. No gallops, murmurs, or rubs. Normal PMI, no JVD. No pulse deficits. Respiratory: Lungs have equal breath sounds bilaterally, clear to auscultation and percussion. No rales, rhonchi or wheezes noted. No increased work of breathing, no retractions or nasal flaring. Abdomen/GI: Soft, non-tender, with normal bowel sounds. No distension or tympany. No guarding or rebound. No evidence of tenderness throughout. Back: No spinal tenderness. No costovertebral tenderness. Full range of motion. Skin: Warm, dry with normal turgor. Normal color with no rashes, no lesions, and no evidence of cellulitis. MS/ Extremity: Pulses equal, no cyanosis. Neurovascular intact. Full, normal range of motion. Neuro: Awake and alert, GCS 15, oriented to person, place, time, and situation. Cranial nerves II-XII grossly intact. Motor strength 5/5 in all extremities. Sensory grossly intact. Cerebellar exam normal. Normal gait. Psych: Awake, alert, with orientation to person, place and time. Behavior, mood, and affect are within normal limits. 06:32 ECG was reviewed by the Attending Physician. brian 07:12 Neuro: Exam negative for acute changes, Orientation: is normal, appropriate for stated brian age, no acute changes, Mentation: is normal, appropriate for stated age, no acute changes, Memory: is normal, appropriate for stated age, no acute changes, Cranial nerves: grossly normal, is grossly normal based on the patient's age, no acute changes, Cerebellar function: is grossly normal, is grossly normal based on the patient's age, no acute changes, Motor: is normal, is grossly normal based on the patient's age, no acute changes, moves all fours, strength is 5/5 in all extremities, Sensation: is normal, appropriate no acute changes, Gait: is steady, Deep tendon reflexes are 2+ (normal) in the bilateral brachioradialis, bicep, tricep and patellar and Achilles tendons, Babinski testing is normal, seizure activity, is not displayed by the patient. Vital Signs: 05:27 BP 134 / 95; Pulse 73; Resp 16; Temp 98.1; Pulse Ox 96% on R/A; Weight 79.83 kg; Height st1 5 ft. 4 in. (162.56 cm); Pain 10/10; 07:00 BP 143 / 97; Pulse 69; Resp 17 S; Pulse Ox 100% on R/A; jg9 08:00 BP 134 / 84; Pulse 60; Resp 14; Pulse Ox 98% on R/A; Pain 4/10; jg9 09:00 BP 122 / 84; Pulse 65; Resp 15 S; Pulse Ox 98% on R/A; Pain 3/10; jg9 05:27 Body Mass Index 30.21 (79.83 kg, 162.56 cm) st1 NIH Stroke Scale Scores: 07:14 NIHSS Score: 0 brian Hollie Coma Score: 06:15 Eye Response: spontaneous(4). Verbal Response: oriented(5). Motor Response: obeys [place] commands(6). Total: 15. MDM: 05:21 Patient medically screened. [place] 06:15 Differential diagnosis: cerebral vascular accident, intracerebral hemorrhage, migraine, brian neoplasm, subarachnoid bleed, subdural hematoma, temporal arteritis, tension headache. Data reviewed: vital signs, nurses notes, lab test result(s), EKG, radiologic studies, CT scan, plain films. Data interpreted: security monitor: rate is 73 beats/min, rhythm is regular, Pulse oximetry: on room air is 96 %. Test interpretation: by ED physician or midlevel provider: ECG, plain radiologic studies. Counseling: I had a detailed discussion with the patient and/or guardian regarding: the historical points, exam findings, and any diagnostic results supporting the discharge/admit diagnosis, lab results, radiology results. 07:14 ED course: NED [place] ASSUMING CARE OF THIS PATIENT , PT STABLE AT THIS TIME, brian AWAITING CT, CTA HEAD AND NECK. 08:39 ED course: CT and labs unremarkable. Patient states feeling much better after IV jmm Reglan, ketorolac, Decadron. Patient advised follow-up with PCP/neurology for further evaluation otherwise given strict return precautions. Patient understood agrees plan of care.. 12/15 05:52 Order name: Basic Metabolic Panel; Complete Time: 07:05 [place] 12/15 05:52 Order name: CBC with Diff; Complete Time: 07:05 [place] 12/15 05:52 Order name: PT-INR; Complete Time: 07:05 [place] 12/15 05:52 Order name: Troponin HS; Complete Time: 07:05 [place] 12/15 05:52 Order name: SARS-COV-2 RT PCR (Document "Date of Onset" if Symptomatic); Complete Time: brian 07:12/15 06:25 Order name: Urine Dipstick-Ancillary; Complete Time: 07:05 [facility] 12/15 05:52 Order name: XRAY Chest (1 view); Complete Time: 07:44 [place] 12/15 05:52 Order name: CT Head Brain wo Cont; Complete Time: 07:44 [place] 12/15 05:52 Order name: CT Head Angio; Complete Time: 07:44 [place] 12/15 05:52 Order name: CT Neck Angio; Complete Time: 07:44 [place] 12/15 06:42 Order name: Urine --Ancillary (enter results); Complete Time: 07:05 [facility] 12/15 05:52 Order name: EKG; Complete Time: 05:53 [place] 12/15 05:52 Order name: Cardiac monitoring; Complete Time: 06:30 [place] 12/15 05:52 Order name: EKG - Nurse/Tech; Complete Time: 06:30 [place] 12/15 05:52 Order name: IV Saline Lock; Complete Time: 06:03 [place] 12/15 05:52 Order name: Labs collected and sent; Complete Time: 06:03 [place] 12/15 05:52 Order name: O2 Per Protocol; Complete Time: 05:53 [place] 12/15 05:52 Order name: O2 Sat Monitoring; Complete Time: 05:53 [place] 12/15 05:52 Order name: Urine Dipstick-Ancillary (obtain specimen); Complete Time: 06:30 [place] 12/15 05:52 Order name: Urine Test (obtain specimen); Complete Time: 06:32 brian EC:32 Rate is 70 beats/min. Rhythm is regular. QRS [place] is Normal. PA interval is normal. QRS brian interval is normal. QT interval is normal. No Q waves. T waves are Normal. No ST changes noted. Clinical impression: Normal ECG and No evidence of ischemia. Interpreted by me. Reviewed by me. Administered Medications: 06:30 Drug: NS 0.9% 500 ml Route: IV; Rate: bolus; Site: right antecubital; as6 07:30 Follow up: IV Status: Completed infusion; IV Intake: 500ml j9 06:30 Drug: NS 0.9% 1000 ml Route: IV; Rate: 125 ml/hr; Site: right antecubital; as6 09:21 Follow up: IV Status: Completed infusion; IV Intake: 500ml jg9 06:30 Drug: foLIC Acid 1 mg Route: IVPB; Site: right antecubital; as6 08:05 Follow up: Response: No adverse reaction j9 06:31 Drug: Benadryl (diphenhydrAMINE) 50 mg Route: IVP; Site: right antecubital; as6 08:05 Follow up: Response: No adverse reaction; Pain is decreased jg9 06:31 Drug: Reglan (metoCLOPramide) 10 mg Route: IVP; Site: right antecubital; as6 08:05 Follow up: Response: No adverse reaction; Nausea is decreased jg9 06:31 Drug: morphine 4 mg Route: IVP; Site: right antecubital; as6 08:05 Follow up: Response: No adverse reaction; Pain is decreased jg9 08:04 Drug: Decadron - Dexamethasone 10 mg Route: IVP; Site: right antecubital; jg9 09:20 Follow up: Response: No adverse reaction jg9 08:04 Drug: Ketorolac 30 mg Route: IVP; Site: right antecubital; jg9 09:19 Follow up: Response: No adverse reaction; Pain is decreased jg9 Disposition: 12/16 07:08 Co-signature as Attending Physician, Bill Whitaker MD I agree with the assessment and brian plan of care. Disposition Summary: 12/15/21 08:40 Discharge Ordered Location: Home [facility] Condition: Stable [facility] Diagnosis - Headache [facility] Followup: [facility] - With: Private Physician - When: 2 - 3 days - Reason: Recheck today's complaints, Continuance of care, Re-evaluation by your physician Discharge Instructions: - Discharge Summary Sheet [facility] - General Headache Without Cause [facility] Forms: - Medication Reconciliation Form [facility] - Thank You Letter [facility] - Antibiotic Education [facility] - Prescription Opioid Use [facility] NIH Stroke Scale - NIH Stroke Score Date: 12/15/2021 Time: 07:14 Total Score = 0 1a. Level of Consciousness (LOC) - 0(Alert) 1b. Level of Consciousness (LOC) (Month \\T\\ Age) - 0(Both) 1c. LOC Commands (Open \\T\\ Closes Eyes/Plush Brusher) - 0(Both) 2. Best Gaze (Lateral Gaze Paresis) - 0(Normal) 3. Visual Field Loss - 0(No visual loss) 4. Facial Palsy - 0(Normal) 5a. Left Arm: Motor (10-second hold) - 0(No drift) 5b. Right Arm: Motor (10-second hold) - 0(No drift) 6a. Left Leg: Motor (5-second hold - always test supine) - 0(No drift) 6b. Right Leg: Motor (5-second hold - always test supine) - 0(No drift) 7. Limb Ataxia (finger/nose \\T\\ heel/kevin - test with eyes open) - 0(Absent) 8. Sensory Loss (pinprick arms/legs/face) - 0(Normal) 9. Best Language: Aphasia (description/naming/reading) - 0(No aphasia) 10. Dysarthria (speech clarity - read or repeat words) - 0(Normal) 11. Extinction and Inattention (visual/tactile/auditory/spatial/personal) - 0(No abnormality) Initials: brian Signatures: Dispatcher [employer] EDBill Sagastume MD MD cha Mickail, Joel, PA PA jmm Slawson, Ashby, EDWIN RN as6 Mireya Mcarthur RN RN jg9 Solange Huerta RN RN st1 Corrections: (The following items were deleted from the chart) 12/15 05:33 05:29 PMHx: Anemia; 05:33 05:29 PSHx: Stented artery; st1 05:33 05:29 PSHx: Tonsillectomy; st1 st1
--- NOTE | 2021-12-15 08:42 | EKG ---
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
[2021-12-15 09:44] VITALS: TEMP 98.1
[2021-12-15 09:47] VITALS: O2SAT 98
[2021-12-15 09:48] VITALS: BP 122/84
== END 2021-12-15 09:21 | disposition home or self-care (01) ==
LOC: ER 05:11
DX: R51.9 Headache, unspecified (principal); Z86.73 Personal history of transient ischemic attack (TIA), and cerebral infarction without residual deficits; Z20.822 Contact with and (suspected) exposure to COVID-19; Z88.5 Allergy status to narcotic agent
CPT/HCPCS: 36415; 70450; 70496; 70498; 71045; 80048; 81003; 81025; 84484; 85025; 85610; 93005; 96361; 96374; 96375; 99284; J1100; J1200; J2765; J7030; J7040; Q9967; U0003

== ENCOUNTER 2022-01-01 16:40 | Emergency (ER) | payer SELFPAY ==
--- OUTSIDE RECORDS SUMMARY | 2022-01-01 16:43 | XMS REPORT | Continuity of Care Document ---
:1980 Author Organization [facility] t Address [facility] [place] [address] Care Team Providers Name Role Phone AHMED Attending Clinician Unavailable Payers Payer Name Policy Type Policy Number Effective Date Expiration Date S ource PPO/EPO - BCBS [id number] Problems This patient has no known problems. Allergies, Adverse Reactions, Alerts This patient has no known allergies or adverse reactions. Medications This patient has no known medications. Procedures This patient has no known procedures. Encounters Start End Encounter Admission Attending Care Care Encounter Source Date/Time Date/Time Type Type Clinicians Facility Department ID 2021-12-08 2021-12-08 Outpatient [facility] [id number] [facility] 12:51:23 16:09:32 [facility] 2021-11-06 2021-11-06 Outpatient [facility] [id number] [facility] 10:19:35 12:44:56 [facility] 2021-10-13 2021-10-13 Outpatient [facility] [id number] [facility] 12:12:38 14:57:55 [facility] 2021-09-29 2021-09-29 Outpatient [facility] [id number] [facility] 12:57:38 14:11:45 [facility] 2021-09-15 2021-09-15 Outpatient [facility] [id number] [facility] 13:19:37 15:41:16 [facility] [employer] [facility] [employer] 2021-06-19 2021-06-19 Outpatient [facility] [id number] [facility] 08:20:05 15:26:53 [facility] [employer] [facility] Results Test Description Test Time Test Comments Results Result Comments Source SARS-CoV-2 (COVID-19), RT-PCR/TMA 2021-10-08 16:26:54 Test Item Value Reference Range Interpretation Comme nts SARS-CoV-2 INTERPRETATION NEGATIVE SEE NOTE S ARS-CoV-2 RNA NOT (test code = 99433) DETECTED Negative results do not preclude SARS-C [...] is h igh. SOURCE (test code = 42531) NASOPHARYNGEAL Note: Methodology is Salma Karissa Real-Time [...] are provided by method given in report:https:// www.[employer]/c linicians/enid t-communications/ Alternatively, see downloadable PDF fact sheet at:https://www. [employer]/COVID -19-RT-PCR UNLESS OTHERWISE INDIC ATED, ALL TESTING PERFORMED [facility], [place]. [address] [place] [address] LABORATORY DIRE CTOR: OMER CRESPO M.D. CLIA NUMBER [id number] [place]. [id number] BREAST STEREO CORE BIOPSY [id number] 12:46:25- BREAST STEREO CORE BIOPSY LEFTSTEREOTACTIC GUIDED BIOPSY LEFT BREAST WITH MARKING DEVICE INSERTED: 10/30/2019CLINICAL: Stereotactic biopsy, left breast. Comparison is made to exam dated 10/10/2019 mammogram - [facility]. A stereotactic guided biopsy was performed [...] 12:46:25 Attending Technologist: Raquel Yeung , [facility]AImaging Technologist: Nova Vasquez , [facility]CALOOSAletter sent: Benign BiopsyBREAST STEREO CORE BIOPSY [id number] 12:46:25- BREAST STEREO CORE BIOPSY LEFTSTEREOTACTIC GUIDED BIOPSY LEFT BREAST WITH MARKING DEVICE INSERTED: 10/30/2019CLINICAL: Stereotactic biopsy, left breast. Comparison is made to exam dated 10/10/2019 [facility]. A stereotactic guided biopsy was performed for [...] M.D.ss,qn/:11/06/2019 12:46:25 Attending Technologist: Raquel MAGUIRE, [facility]-FWImaging Technologist: Nova MAGUIRE, [facility]-FWletter sent: Benign BiopsyDIAG MAMM LEFT JANEE CAD [id number] 09:22:40 - DIAG MAMM LEFT JANEE CAD DIGITALUNILATERAL LEFT DIGITAL DIAGNOSTIC MAMMOGRAM 3D/2D WITH CAD: 020CLINICAL: Asymptomatic. Digital breast tomosynthesis was performed in addition to routine CC andMLO views. Current mammographic images were evaluated by either a [employer] M-Vu or a [employer] ImageChecker CAD (computer aided detection system). Comparison is made to exam dated 08/31/2019 mammogram - [facility]. The tissue of the left [...] performed for further evaluation.Idalia bhakta/:10/11/2019 09:22:40 Entry: [facility] 10/11/2019 11:17:07Imaging Technologist: Jackie MAGUIRE, [facility]amm[facility] BI-RADS: 0 Incomplete: Additional Imaging Evaluation NeededDIAG MAMM LEFT JANEE CAD [id number] 09:22:40 - DIAG MAMM LEFT JANEE CAD DIGITALUNILATERAL LEFT DIGITAL DIAGNOSTIC MAMMOGRAM 3D/2D WITH CAD: 10/10/2019CLINICAL: Asymptomatic. Digital breast tomosynthesis was performed in addition to routine CC andMLO views. Current mammographic images were evaluated by either a [employer] M-Vu or a [employer] ImageChecker CAD (computer aided detection system). Comparison is made to exam dated 08/31/2019 mammogram - [facility]. The tissue of the left [...] performed for further evaluation.Idalia bhakta/:10/11/2019 09:22:40 Entry: [facility] 10/11/2019 11:17:07Imaging Technologist: Jackie MAGUIRE, [facility]amm[facility] BI-RADS: 0 Incomplete: Additional Imaging Evaluation Needed BREAST ULTRASOUND [id number] 09:22:11- BREAST ULTRASOUND BILATERALULTRASOUND OF BOTH BREASTS AND BOTH AXILLA: 10/10/2019CLINICAL: Abnormal mammogram. Comparison is made to exams dated 10/10/2019 mammogram - [facility] and 08/31/2019 mammogram - [facility]. Real- time ultrasound of both [...] the patient. Idalia Reddy D.O. al/:10/11/2019 09:22:11 Registered Public Health Nurse: Katiana MAGUIRE,[facility]- FWletter sent: BIRADS 4/5 Biopsy Ultrasound BI-RADS: 4a Suspicious abnormality - low suspicion for malignancySCR MAMM BILATERAL JANEE CAD [id number] 11:05:50 - SCR MAMM BILATERAL JANEE CAD DIGITALBILATERAL DIGITAL SCREENING MAMMOGRAM 3D/2D WITH CAD: 08/31/2019CLINICAL: Asymptomatic. Digital breast tomosynthesis was performed in addition to routine CC and MLO views. Current mammographic images were evaluated by either a [employer] M-Vu or a [employer] ImageChecker CAD (computer aided detection system). No [...] are recommended. Randall Daniels M.D. et/:09/03/2019 11:05:50 Registered Public Health Nurse: Daniella Chua MM, [facility] Mammography[facility] sent: Additional Imaging Mammogram BI-RADS: 0 Incomplete: Additional Imaging Evaluation Needed
[2022-01-01 17:47] LABS: Hematocrit 38.2 % (36.0-45.0); Lymphocytes % 28.6 % (15.3-44.8); MPV 7.5 fL (7.6-11.3); RBC Red Blood Cell Count 4.38 M/uL (3.86-4.86)
--- NOTE | 2022-01-01 17:48 | RAD REPORT ---
EXAM DESCRIPTION: RAD - Chest Single View - 01/01/2022 5:31 pm CLINICAL HISTORY: CHEST PAIN COMPARISON: Portable 12/15/2021 TECHNIQUE: AP portable chest image was obtained 01/01/2022 5:31 pm . FINDINGS: Lungs are clear. Heart and vasculature are normal. No measurable pleural effusion and no p neumothorax. No acute bony abnormality seen. No acute aortic findings suspected. IMPRESSION: No acute cardiopulmonary process.
[2022-01-01] MEDS ORDERED: ASPIRIN 81 MG CHEWABLE TABLET ONE (17:52)
[2022-01-01] MEDS ORDERED: ONDANSETRON 4 MG/2 ML VIAL ONE (17:53)
[2022-01-01] MEDS ORDERED: FAMOTIDINE 20 MG/2 ML VIAL IV ONE (17:53)
[2022-01-01] MEDS ORDERED: MORPHINE 4 MG/ML SYR ONE (17:53)
[2022-01-01 18:13] LABS: ALT/SGPT 16 U/L (12-78); AST/SGOT 11 U/L (15-37); Albumin 3.8 g/dL (3.4-5.0); Alkaline Phosphatase 62 U/L (45-117); BUN Blood Urea Nitrogen 13 mg/dL (7-18); Bicarbonate 24 mmol/L (21-32); Bilirubin Total 0.3 mg/dL (0.2-1.0); Glucose Level 94 mg/dL (74-106); Lipase 164 U/L (73-393); Magnesium 2.5 mg/dL (1.8-2.4); NT PRO-BNP 58 pg/mL (<125); Protein, Total 7.5 g/dL (6.4-8.2); Sodium Level 140 mmol/L (136-145)
[2022-01-01 18:15] LABS: Bilirubin Direct < 0.1 mg/dL (0-0.2); Troponin High Sensitivity < 3.0 pg/mL (<58.9)
--- NOTE | 2022-01-01 18:51 | EDPHYS ---
Physician Documentation [facility] Name: Zeynep Negron Age: 41 yrs Sex: Female : 1980 Arrival Date: 01/01/2022 Time: 16:42 Bed 17 Private MD: LEONORA Physician Bill Whitaker HPI: 01/01 18:29 This 41 yrs old Female presents to ER via Ambulatory with complaints of Chest brian Pain. 18:38 The patient or guardian reports chest pain that is located primarily in the anterior brian chest wall, bilaterally. Onset: 2 day(s) ago. The pain does not radiate. Associated signs and symptoms: The patient has no apparent associated signs or symptoms. The chest pain is described as burning, pimples and pustules present. Duration: The patient or guardian reports multiple episodes. Modifying factors: The symptoms are alleviated by remaining still, the symptoms are aggravated by touching. Severity of pain: At its worst the pain was mild in the emergency department the pain is unchanged. The patient has not experienced similar symptoms in the past. Historical: - Allergies: 16:54 Codeine; ab2 16:54 Hydrocodone-Acetaminophen; ab2 - PMHx: 16:54 Aneurysm; CVA; ab2 - PSHx: 16:54 Appendectomy; partial hysterectomy; Cholecystectomy; ab2 - Immunization history:: Adult Immunizations up to date. - Social history:: Smoking status: Patient denies any tobacco usage or history of. - Family history:: not pertinent. ROS: 18:38 Constitutional: Negative for fever, chills, and weight loss, Eyes: Negative for injury, brian pain, redness, and discharge, ENT: Negative for injury, pain, and discharge, Neck: Negative for injury, pain, and swelling, Respiratory: Negative for shortness of breath, cough, wheezing, and pleuritic chest pain, Abdomen/GI: Negative for abdominal pain, nausea, vomiting, diarrhea, and constipation, Back: Negative for injury and pain, : Negative for injury, bleeding, discharge, and swelling, MS/Extremity: Negative for injury and deformity, Neuro: Negative for headache, weakness, numbness, tingling, and seizure, Psych: Negative for depression, anxiety, suicide ideation, homicidal ideation, and hallucinations, Allergy/Immunology: Negative for hives, rash, and allergies, Endocrine: Negative for neck swelling, polydipsia, polyuria, polyphagia, and marked weight changes, Hematologic/Lymphatic: Negative for swollen nodes, abnormal bleeding, and unusual bruising. 18:38 Cardiovascular: Positive for chest pain, of the chest. 18:38 Skin: Positive for pustules, rash, of the right clavicle, left clavicle, anterior aspect of right upper chest, anterior aspect of left upper chest, right breast and left breast. Exam: 18:38 Constitutional: This is a well developed, well nourished patient who is awake, alert, brian and in no acute distress. Head/Face: Normocephalic, atraumatic. Eyes: Pupils equal round and reactive to light, extra-ocular motions intact. Lids and lashes normal. Conjunctiva and sclera are non-icteric and not injected. Cornea within normal limits. Periorbital areas with no swelling, redness, or edema. ENT: Nares patent. No nasal discharge, no septal abnormalities noted. Tympanic membranes are normal and external auditory canals are clear. Oropharynx with no redness, swelling, or masses, exudates, or evidence of obstruction, uvula midline. Mucous membranes moist. Neck: Trachea midline, no thyromegaly or masses palpated, and no cervical lymphadenopathy. Supple, full range of motion without nuchal rigidity, or vertebral point tenderness. No Meningismus. Chest/axilla: Normal chest wall appearance and motion. Nontender with no deformity. No lesions are appreciated. Cardiovascular: Regular rate and rhythm with a normal S1 and S2. No gallops, murmurs, or rubs. Normal PMI, no JVD. No pulse deficits. Respiratory: Lungs have equal breath sounds bilaterally, clear to auscultation and percussion. No rales, rhonchi or wheezes noted. No increased work of breathing, no retractions or nasal flaring. Abdomen/GI: Soft, non-tender, with normal bowel sounds. No distension or tympany. No guarding or rebound. No evidence of tenderness throughout. Back: No spinal tenderness. No costovertebral tenderness. Full range of motion. MS/ Extremity: Pulses equal, no cyanosis. Neurovascular intact. Full, normal range of motion. Neuro: Awake and alert, GCS 15, oriented to person, place, time, and situation. Cranial nerves II-XII grossly intact. Motor strength 5/5 in all extremities. Sensory grossly intact. Cerebellar exam normal. Normal gait. Psych: Awake, alert, with orientation to person, place and time. Behavior, mood, and affect are within normal limits. 18:38 Skin: Appearance: Color: normal in color, Temperature: normal temperature, Moisture: normal moisture, petechiae, not noted, ecchymosis, not noted, lesion(s), noted, and can be described as erythematous, pustular, tender, located on the chest. 18:45 ECG was reviewed by the Attending Physician. brian Vital Signs: 16:52 BP 131 / 86; Pulse 82; Resp 18; Temp 97.2(TE); Pulse Ox 100% on R/A; Weight 81.65 kg; ab2 Height 5 ft. 4 in. (162.56 cm); Pain 7/10; 18:10 BP 128 / 78; Pulse 67; Resp 18; Pulse Ox 98% on R/A; ph 16:52 Body Mass Index 30.90 (81.65 kg, 162.56 cm) ab2 MDM: 16:55 Patient medically screened. brian 18:42 Differential diagnosis: abnormal EKG, acute myocardial infarction, acute pericarditis, brian anxiety, chest wall pain, pancreatitis, pleurisy, pneumonia, pulmonary embolus, stable angina, unstable angina. HEART Score: History: Slightly Suspicious (0), ECG: Normal (0), Age: < or = 45 years (0), Risk Factors: No Risk Factors Known (0), Troponin: < or = 1 x Normal Limit (0). The patient was given aspirin in the Emergency Department. The patient's deep vein thrombosis risk score was calculated as follows: Total Score: 0. This patient was found to be at low risk for a deep vein thrombosis by using the Well's assessment criteria. The patient's pulmonary embolism risk score was calculated as follows: Total Score: 0-2 points. This patient was found to be at low risk for a pulmonary embolism by using the Well's assessment criteria. ARJUN Risk Score: TOTAL SCORE = 0. Data reviewed: vital signs, nurses notes, lab test result(s), EKG, radiologic studies, plain films. Data interpreted: phototypesetting equipment monitor: rate is 67 beats/min, rhythm is regular, Pulse oximetry: on room air is 98 %. Test interpretation: by ED physician or midlevel provider: ECG, plain radiologic studies. Counseling: I had a detailed discussion with the patient and/or guardian regarding: the historical points, exam findings, and any diagnostic results supporting the discharge/admit diagnosis, lab results, radiology results, the need for outpatient follow up, for definitive care, a spine supervisor, a family practitioner. 01/01 16:59 Order name: Basic Metabolic Panel; Complete Time: 18:16 [facility] 01/01 16:59 Order name: CBC with Diff; Complete Time: 18:14 [facility] 01/01 16:59 Order name: LFT's; Complete Time: 18:16 [facility] 01/01 16:59 Order name: Magnesium; Complete Time: 18:16 [facility] 01/01 16:59 Order name: NT PRO-BNP; Complete Time: 18:16 [facility] 01/01 16:59 Order name: PT-INR; Complete Time: 18:28 [facility] 01/01 16:59 Order name: Troponin HS; Complete Time: 18:16 [facility] 01/01 16:59 Order name: XRAY Chest (1 view); Complete Time: 18:14 [facility] 01/01 16:59 Order name: Lipase; Complete Time: 18:16 [facility] 01/01 16:59 Order name: D-Dimer; Complete Time: 18:28 [facility] 01/01 16:59 Order name: SARS-COV-2 RT PCR (Document "Date of Onset" if Symptomatic) [facility] 01/01 16:59 Order name: EKG; Complete Time: 17:00 [facility] 01/01 16:59 Order name: Cardiac monitoring; Complete Time: 17:14 [facility] 01/01 16:59 Order name: EKG - Nurse/Tech; Complete Time: 17:14 [facility] 01/01 16:59 Order name: IV Saline Lock; Complete Time: 17:42 [facility] 01/01 16:59 Order name: Labs collected and sent; Complete Time: 17:42 [facility] 01/01 16:59 Order name: O2 Per Protocol; Complete Time: 17:14 [facility] 01/01 16:59 Order name: O2 Sat Monitoring; Complete Time: 17:14 [facility] EC:45 Rate is 86 beats/min. Rhythm is regular. QRS [place] is Normal. CA interval is normal. QRS brian interval is normal. QT interval is normal. No Q waves. T waves are Normal. No ST changes noted. Clinical impression: Normal ECG and No evidence of ischemia. Interpreted by me. Reviewed by me. Administered Medications: 18:00 Drug: Zofran (Ondansetron) 4 mg Route: IVP; Site: right antecubital; ph 18:57 Follow up: Response: No adverse reaction ph 18:02 Drug: morphine 4 mg Route: IVP; Site: right antecubital; ph 18:57 Follow up: Response: No adverse reaction ph 18:05 Drug: Pepcid (famotidine) 20 mg Route: IVP; Site: right antecubital; ph 18:58 Follow up: Response: No adverse reaction ph 18:06 Drug: Aspirin Chewable Tablet 162 mg Route: PO; ph 18:58 Follow up: Response: No adverse reaction ph 18:16 CANCELLED (Duplicate Order): Rocephin (cefTRIAXone) 1 grams IV at per protocol once; brina Given slow IV push per pharmacy instructions 19:30 Drug: Bactrim (trimethoprim-sulfamethoxazole) (160 mg-800 mg (DS) 1 tablet Route: PO; ke1 19:30 Drug: Doxycycline 100 mg Route: PO; ke1 Disposition Summary: 01/01/22 18:50 Discharge Ordered Location: Home brian Problem: new brian Symptoms: have improved brian Condition: Stable brian Diagnosis - Dermatitis, unspecified - pustiles brian Followup: brian - With: Private Physician - When: 2 - 3 days - Reason: Recheck today's complaints, Continuance of care, Re-evaluation by your physician Followup: brian - With: Adam Arias MD - When: 2 - 3 days - Reason: Recheck today's complaints, Re-evaluation by your physician Discharge Instructions: - Discharge Summary Sheet brian - Rash, Adult brian - Rash, Adult, [id number] Forms: - Medication Reconciliation Form brian - Thank You Letter brian - Antibiotic Education brian - Prescription Opioid Use [facility] Prescriptions: - Hydroxyzine HCl 25 mg Oral Tablet - take 1 tablet by ORAL route every 6 hours As needed; 30 tablet; Refills: 0, brian Product Selection Permitted - Pepcid 20 mg Oral Tablet - take 1 tablet by ORAL route every 12 hours for 10 days; 20 tablet; Refills: 0, brian Product Selection Permitted - Doxycycline Hyclate 100 mg Oral Tablet - take 1 tablet by ORAL route every 12 hours; 20 tablet; Refills: 0, Product brian Selection Permitted - Bactrim DS 800-160 mg Oral Tablet - take 1 tablet by ORAL route every 12 hours for 10 days; 20 tablet; Refills: 0, [facility] Product Selection Permitted Signatures: Dispatcher [employer] EDBill Sagastume MD MD cha Hall, Patricia RN RN ph Jerry Velazquez2 Caroline Fofana RN RN ke1 Corrections: (The following items were deleted from the chart) 18:16 18:14 Rocephin (cefTRIAXone) 1 grams IV at per protocol once; Given slow IV push per [facility] pharmacy instructions ordered. [facility] 18:17 18:15 BLOOD CULTURE*+BA.LAB.BRZ ordered. EDMS EDMS
--- NOTE | 2022-01-01 18:51 | ER ---
Nurse's Notes [facility] Name: Zeynep Negron Age: 41 yrs Sex: Female : 1980 Arrival Date: 01/01/2022 Time: 16:42 Bed 17 Private MD: Diagnosis: Dermatitis, unspecified-pustiles Presentation: 01/01 16:52 Chief complaint: Patient states: "I was driving home from work and started having chest ab2 pain, I got lightheaded and nausea." Pt states she is SOB as well. Coronavirus screen: Vaccine status: Patient reports receiving the 2nd dose of the covid vaccine. Client denies travel out of the [place] in the last 14 days. At this time, the client does not indicate any symptoms associated with coronavirus-19. Ebola Screen: Patient negative for fever greater than or equal to 101.5 degrees Fahrenheit, and additional compatible Ebola Virus Disease symptoms Patient denies exposure to infectious person. Patient denies travel to an Ebola-affected area in the 21 days before illness onset. No symptoms or risks identified at this time. Initial Sepsis Screen: Does the patient meet any 2 criteria? No. Patient's initial sepsis screen is negative. Does the patient have a suspected source of infection? No. Patient's initial sepsis screen is negative. Risk Assessment: Do you want to hurt yourself or someone else? Patient reports no desire to harm self or others. Onset of symptoms is unknown. 16:52 Method Of Arrival: Ambulatory ab2 16:52 Acuity: JED 3 ab2 Triage Assessment: 16:55 General: Appears in no apparent distress. uncomfortable, Behavior is cooperative, ab2 appropriate for age, anxious. Pain: Complains of pain in chest. EENT: No deficits noted. No signs and/or symptoms were reported regarding the EENT system. Neuro: Level of Consciousness is awake, alert, obeys commands, Oriented to person, place, time, situation, Appropriate for age Pipe Foreman are equal bilaterally Moves all extremities. Gait is steady, Speech is normal, Facial symmetry appears normal. Cardiovascular: Reports chest pain, lightheadedness, shortness of breath, Heart tones S1 S2 present Patient's skin is warm and dry. Respiratory: Airway is patent Respiratory effort is even, unlabored, Respiratory pattern is regular, symmetrical. GI: No deficits noted. No signs and/or symptoms were reported involving the gastrointestinal system. : No deficits noted. No signs and/or symptoms were reported regarding the genitourinary system. Derm: Skin is intact, Skin is pink, warm \\T\\ dry. Historical: - Allergies: 16:54 Codeine; ab2 16:54 Hydrocodone-Acetaminophen; ab2 - PMHx: 16:54 Aneurysm; CVA; ab2 - PSHx: 16:54 Appendectomy; partial hysterectomy; Cholecystectomy; ab2 - Immunization history:: Adult Immunizations up to date. - Social history:: Smoking status: Patient denies any tobacco usage or history of. - Family history:: not pertinent. Screenin:10 Abuse screen: Denies threats or abuse. Denies injuries from another. Nutritional ph screening: No deficits noted. Tuberculosis screening: No symptoms or risk factors identified. Fall Risk None identified. Assessment: 18:08 General: Appears in no apparent distress. comfortable, well groomed, Behavior is calm, ph cooperative, appropriate for age, Denies fever, feeling ill. Pain: Complains of pain in mid-sternal area Pain does not radiate. Quality of pain is described as heavy, sharp, Pain began suddenly. Neuro: Level of Consciousness is awake, alert, obeys commands, Oriented to person, place, time, situation. Cardiovascular: Reports chest pain, lightheadedness, Denies fatigue, palpitations, vomiting, Rhythm is regular Chest pain quality is heaviness, sharp, is located in substernal area. Respiratory: Airway is patent Respiratory effort is even, unlabored. Derm: Skin is intact, is healthy with good turgor, Skin is pink, warm \\T\\ dry. Rash noted that is itchy, vesicular, on chest. Musculoskeletal: Circulation, motion, and sensation intact. Range of motion: intact in all extremities. Vital Signs: 16:52 BP 131 / 86; Pulse 82; Resp 18; Temp 97.2(TE); Pulse Ox 100% on R/A; Weight 81.65 kg; ab2 Height 5 ft. 4 in. (162.56 cm); Pain 7/10; 18:10 BP 128 / 78; Pulse 67; Resp 18; Pulse Ox 98% on R/A; ph 16:52 Body Mass Index 30.90 (81.65 kg, 162.56 cm) ab2 Vitals: 18:10 Cardiac Rhythm Assessment Sinus rhythm. ph ED Course: 16:42 Patient arrived in ED. mr 16:54 Triage completed. ab2 16:55 Bill Whitaker MD is Attending Physician. brian 16:55 Arm band placed on right wrist. ab2 17:14 Dasha Meléndez, EDWIN is Primary Nurse. ph 17:33 XRAY Chest (1 view) In Process Unspecified. EDMS 17:35 Initial lab(s) drawn, by me, sent to lab. Inserted saline lock: 22 gauge in right ph antecubital area, using aseptic technique. Blood collected. Patient maintains SpO2 saturation greater than 95% on room air. 18:11 Patient has correct armband on for positive identification. Bed in low position. Call light in reach. Side rails up X 1. 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 Pulse ox on. NIBP on. 18:46 Adam Arias MD is Referral Physician. brian 20:01 No provider procedures requiring assistance completed. IV discontinued, intact, ll3 bleeding controlled, No redness/swelling at site. Pressure dressing applied. Administered Medications: 18:00 Drug: Zofran (Ondansetron) 4 mg Route: IVP; Site: right antecubital; ph 18:57 Follow up: Response: No adverse reaction ph 18:02 Drug: morphine 4 mg Route: IVP; Site: right antecubital; ph 18:57 Follow up: Response: No adverse reaction ph 18:05 Drug: Pepcid (famotidine) 20 mg Route: IVP; Site: right antecubital; ph 18:58 Follow up: Response: No adverse reaction ph 18:06 Drug: Aspirin Chewable Tablet 162 mg Route: PO; ph 18:58 Follow up: Response: No adverse reaction ph 18:16 CANCELLED (Duplicate Order): Rocephin (cefTRIAXone) 1 grams IV at per protocol once; brian Given slow IV push per pharmacy instructions 19:30 Drug: Bactrim (trimethoprim-sulfamethoxazole) (160 mg-800 mg (DS) 1 tablet Route: PO; ke1 19:30 Drug: Doxycycline 100 mg Route: PO; ke1 Outcome: 18:50 Discharge ordered by . brian 20:01 Discharged to home ambulatory. ll3 20:01 Condition: stable 20:01 Discharge instructions given to patient, family, Instructed on discharge instructions, follow up and referral plans. medication usage, Demonstrated understanding of instructions, follow-up care, medications, Prescriptions given X 4. 20:01 Patient left the ED. ll3 Signatures: Dispatcher [employer] EDBill Sagastume MD MD cha Rivera, Alexa Meléndez, Dasha RN RN [place] Andrew RN RN ll3 Jerry Velazquez Kouassi, RN RN ke1
[2022-01-01] MEDS ORDERED: SMZ./TMP. 800/160 MG TABLET ONE (19:25)
[2022-01-01] MEDS ORDERED: DOXYCYCLINE 100 MG CAP PO ONE (19:25)
[2022-01-02 02:20] VITALS: TEMP 97.2
[2022-01-02 02:22] VITALS: BP 128/78; O2SAT 98
--- NOTE | 2022-01-04 09:43 | EKG ---
Test Date: 2022-01-01 Test Time: 16:54:42 Kindergarten Aide: MARIANO MEASUREMENT RESULTS: Intervals: Rate: 86 LA: 150 QRSD: 72 QT: 350 QTc: 418 [place]: P: 66 LA: 150 QRS: 17 T: 60 INTERPRETIVE STATEMENTS: Normal sinus rhythm Normal ECG Compared to ECG 12/15/2021 06:19:21 No significant changes Electronically Signed On 01-04-22 09:36:19 CDT by Adam Arias
== END 2022-01-01 20:01 | disposition home or self-care (01) ==
LOC: ER 16:40
DX: L30.9 Dermatitis, unspecified (principal); Z86.73 Personal history of transient ischemic attack (TIA), and cerebral infarction without residual deficits; Z88.5 Allergy status to narcotic agent
CPT/HCPCS: 36415; 71045; 80048; 80076; 83690; 83735; 83880; 84484; 85025; 85379; 85610; 93005; 96374; 96375; 99285; J2405; U0003

== ENCOUNTER 2024-01-23 13:36 | Inpatient (IN) | payer SELFPAY ==
--- OUTSIDE RECORDS SUMMARY | 2024-01-23 13:39 | XMS REPORT | Clinical Summary ---
Author Name Unknown Organization [facility] Address [address] [place] [id number] Care Team Providers Care Machine Hamper Maker Name Role Phone Robert Vega MD Primary Care Provider [phone] Encounters Date Type Department Care Team Description 02/07/2023 8:00 PM CDT Ancillary Procedure Image Library [address] [place] [id number] Robert Vega MD Cancer after 01/23/2023 Social History Tobacco Use Types Packs/Day Years Used Date Smoking Tobacco: Never Assessed Sex and Gender Information Value Date Recorded Sex Assigned at Female 01/27/2023 4:55 PM CDT Gender Identity Female 01/27/2023 4:55 PM CDT Sexual Orientation Not on file Job Start Date Occupation Industry Not on file Not on file Not on file Plan of Treatment Not on file Care Teams Machine Hamper Maker Relationship Specialty Start Date End Date Robert Vega MD [address] [place] [address] [id number] PCP - General Endocrinology 01/31/23
[2024-01-23] MEDS ORDERED: FAMOTIDINE 20 MG/2 ML VIAL IV ONE (14:01)
[2024-01-23] MEDS ORDERED: NA CHLORIDE 0.9% 1,000 ML ONE (14:01)
[2024-01-23] MEDS ORDERED: MORPHINE 4 MG/ML SYR ONE ×2 (14:01→15:05)
[2024-01-23] MEDS ORDERED: ONDANSETRON 4 MG/2 ML VIAL ONE ×2 (14:01→15:05)
[2024-01-23 14:09] LABS: Absolute Basophils 0.1 K/uL (0-0.5); Absolute Eosinophils 0.1 K/uL (0-0.5); Absolute Lymphocytes (CBC) 1.7 K/uL (0.7-4.9); Absolute Monocytes 0.6 K/uL (0.1-1.3); Basophils % 0.5 % (0-1.3); Eosinophils % 0.4 % (0-4.4); Hematocrit 38.9 % (36.0-45.0); Lymphocytes % 13.6 % (15.3-44.8); MCH 29.2 pg (27.0-35.0); MCHC 33.3 g/dL (32.0-36.0); MCV 87.7 fL (80-100); Monocytes % 4.5 % (3.3-12.3); Platelets 440 thou/uL (152-406); RBC Red Blood Cell Count 4.44 M/uL (3.86-4.86); Red Cell Distribution Width 12.4 % (12.1-15.2)
[2024-01-23 14:12] LABS: Specific Gravity 1.019 (1.005-1.030)
[2024-01-23 14:13] LABS: Specific Gravity 1.019 (1.005-1.030); Sqamous Epithelial <5 /HPF (None Seen); Urine Bacteria None Seen /HPF (<20); Urine Bilirubin NEGATIVE (Negative); Urine Blood 2+ (Negative); Urine Clarity Clear (Clear); Urine Color Light-Yellow (Yellow); Urine Culture Reflex Order REFLEXED; Urine Glucose NEGATIVE (Negative); Urine Ketones NEGATIVE (Negative); Urine Microscopic Reflex YN ORDER UMIC; Urine Mucus Slight /HPF (None Seen); Urine Nitrite NEGATIVE (Negative); Urine Protein TRACE (Negative); Urine RBC >50 /HPF (None Seen); Urine Urobilinogen Normal (Normal); Urine pH 6.5 (5.0-7.0)
[2024-01-23 14:28] LABS: Albumin/Globulin Ratio 0.9 (1.1-1.8); Anion Gap 7.8 mEq/L (5.0-15.0); Bilirubin Total 0.4 mg/dL (0.2-1.0); Globulin 4.4 g/dL (2.3-3.5); Potassium 3.8 mEq/L (3.5-5.1); Protein, Total 8.4 g/dL (6.4-8.2)
[2024-01-23] MEDS ORDERED: CEFTRIAXONE 1000 MG/VIAL ONE (15:05)
--- NOTE | 2024-01-23 16:11 | RAD REPORT ---
EXAM DESCRIPTION: CT - Abdomen Pelvis W Contrast - 01/23/2024 2:50 pm CLINICAL HISTORY: ABD PAIN COMPARISON: Abdomen Pelvis W Contrast dated 06/10/2019; CT ABD PELVIS W CONTRAST dated 06/23/2015; C T ABD PELVIS W CONTRAST dated 03/18/2015; CT ABD PELVIS W CONTRAST dated 08/19/2013 TECHNIQUE: Thin cut axial CT imaging of the abdomen and pelvis was performed following intravenous a dministration of iodinated contrast. Multiplanar reformats were generated and reviewed. All CT scans are performed using dose optimization technique as appropriate and may include automated exposure control or mA/KV adjustment according to patient size. FINDINGS: No suspicious findings in the lung bases. The liver, spleen, and pancreas show no suspicious findings. Gallbladder was surgically removed. Sequ elae of gastric bypass. Moderate right hydroureteronephrosis, with perinephric and periureteric fat stranding. Elongated 9 mm calculus at the right vesicoureteral junction. Nonobstructing 13 mm calculus within the right renal pelvis. Fluid density cortical lesions bilaterally, largest measuring 14 mm at the left interpolar re gion, not well characterized, but suggestive of small cysts. No dilated bowel loops or bowel wall thickening. Fibroid uterus. No free air, free fluid or inflammat ory stranding. No hernia, mass or bulky lymphadenopathy. The urinary bladder is without significant f inding. No suspicious bony findings. IMPRESSION: Moderate right hydroureteronephrosis, with perinephric and periureteric fat stranding. E longated 9 mm calculus at the right vesicoureteral junction. Nonobstructing 13 mm right renal pelvis calculus. Other findings as above. The findings were communicated to Abi Irene on 01/23/2024 at 16:03 hours.
[2024-01-23] MEDS ORDERED: KETOROLAC 30 MG/ML INJ ONE (16:32)
[2024-01-23] MEDS ORDERED: TAMSULOSIN 0.4 MG SR CAP ONE (16:32)
[2024-01-23] MEDS ORDERED: LIDOCAINE VISCOUS 2% 10ML ORAL SOLN ONE (16:33)
--- NOTE | 2024-01-23 17:28 | EDPHYS ---
Physician Documentation [facility] Name: Zeynep Negron Age: 43 yrs Sex: Female : 1980 Arrival Date: 01/23/2024 Time: 13:36 Bed 6 Private MD: LEONORA Physician Bill Whitaker HPI: 01/22 17:18 This 43 yrs old Female presents to ER via Ambulatory with complaints of brian Abdominal Pain, Back Pain. 17:18 The patient presents with pain that is acute, with no known mechanism of injury. The brian symptoms are located in the right mid back and right low back. Onset: The symptoms/episode began/occurred today. The pain radiates to the right mid back and right low back. Associated signs and symptoms: The patient has no apparent associated signs or symptoms. Modifying factors: The patient symptoms are alleviated by nothing, the patient symptoms are aggravated by nothing. Severity of symptoms: At their worst the symptoms were moderate, in the emergency department the symptoms are actually worse, markedly. The patient has not experienced similar symptoms in the past. Historical: - Allergies: 13:55 Hydrocodone-Acetaminophen; ld1 13:55 Codeine; ld1 - PMHx: 13:55 Aneurysm; CVA; ld1 - PSHx: 13:55 Cholecystectomy; Appendectomy; partial hysterectomy; Ablation (partial hysterectomy); ld1 - Immunization history:: Adult Immunizations up to date. - Infectious Disease History:: Denies. - Social history:: Smoking status: Patient denies any tobacco usage or history of. - Family history:: not pertinent. ROS: 17:18 Constitutional: Negative for fever, chills, and weight loss, Eyes: Negative for injury, brian pain, redness, and discharge, ENT: Negative for injury, pain, and discharge, Neck: Negative for injury, pain, and swelling, Cardiovascular: Negative for chest pain, palpitations, and edema, Respiratory: Negative for shortness of breath, cough, wheezing, and pleuritic chest pain, : Negative for injury, bleeding, discharge, and swelling, MS/Extremity: Negative for injury and deformity, Skin: Negative for injury, rash, and discoloration, Neuro: Negative for headache, weakness, numbness, tingling, and seizure, Psych: Negative for depression, anxiety, suicide ideation, homicidal ideation, and hallucinations, Allergy/Immunology: Negative for hives, rash, and allergies, Endocrine: Negative for neck swelling, polydipsia, polyuria, polyphagia, and marked weight changes, Hematologic/Lymphatic: Negative for swollen nodes, abnormal bleeding, and unusual bruising, 17:18 Abdomen/GI: Positive for abdominal pain, nausea and vomiting, abdominal cramps, of the posterior aspect of right lateral abdomen, anterior aspect of right lateral abdomen, right upper quadrant and right lower quadrant, Exam: 17:18 Constitutional: This is a well developed, well nourished patient who is awake, alert, brian and in no acute distress. Head/Face: Normocephalic, atraumatic. Eyes: Pupils equal round and reactive to light, extra-ocular motions intact. Lids and lashes normal. Conjunctiva and sclera are non-icteric and not injected. Cornea within normal limits. Periorbital areas with no swelling, redness, or edema. ENT: Nares patent. No nasal discharge, no septal abnormalities noted. Tympanic membranes are normal and external auditory canals are clear. Oropharynx with no redness, swelling, or masses, exudates, or evidence of obstruction, uvula midline. Mucous membranes moist. Neck: Trachea midline, no thyromegaly or masses palpated, and no cervical lymphadenopathy. Supple, full range of motion without nuchal rigidity, or vertebral point tenderness. No Meningismus. Chest/axilla: Normal chest wall appearance and motion. Nontender with no deformity. No lesions are appreciated. Cardiovascular: Regular rate and rhythm with a normal S1 and S2. No gallops, murmurs, or rubs. Normal PMI, no JVD. No pulse deficits. Respiratory: Lungs have equal breath sounds bilaterally, clear to auscultation and percussion. No rales, rhonchi or wheezes noted. No increased work of breathing, no retractions or nasal flaring. Skin: Warm, dry with normal turgor. Normal color with no rashes, no lesions, and no evidence of cellulitis. MS/ Extremity: Pulses equal, no cyanosis. Neurovascular intact. Full, normal range of motion. Neuro: Awake and alert, GCS 15, oriented to person, place, time, and situation. Cranial nerves II-XII grossly intact. Motor strength 5/5 in all extremities. Sensory grossly intact. Cerebellar exam normal. Normal gait. Psych: Awake, alert, with orientation to person, place and time. Behavior, mood, and affect are within normal limits. 17:18 Abdomen/GI: Inspection: abdomen appears normal, Bowel sounds: normal, Palpation: moderate abdominal tenderness, in the posterior aspect of right lateral abdomen, anterior aspect of right lateral abdomen, right upper quadrant and right lower quadrant, Liver: no appreciated palpable abnormalities, Hernia: not appreciated, Vital Signs: 13:54 BP 153 / 98; Pulse 74; Resp 18; Temp 98.3(TE); Pulse Ox 100% on R/A; Weight 86.18 kg; ld1 Height 5 ft. 4 in. ; Pain 10/10; 14:54 BP 132 / 85; Pulse 70; Resp 16 S; Pulse Ox 100% on R/A; kc6 17:03 BP 153 / 94; Pulse 76; Resp 16 S; Pulse Ox 100% on R/A; kc6 18:18 BP 132 / 92; Pulse 97; Resp 18 S; Pulse Ox 100% on R/A; kc6 20:08 BP 139 / 99; Pulse 73; Resp 17 S; Pulse Ox 99% on R/A; ha1 21:00 BP 129 / 92; Pulse 91; Resp 17 S; Pulse Ox 99% on R/A; jw7 13:54 Body Mass Index 32.61 (86.18 kg, 162.56 cm) ld1 13:54 Pain Scale: Adult ld1 MDM: 13:45 Patient medically screened. brian 17:20 Differential diagnosis: Cholelithiasis Obesity Peptic Ulcer Pyelonephritis brian Renal Infarction ruptured disc, Scoliosis sprain, Ureterolithiasis. Data reviewed: vital signs, nurses notes, lab test result(s), radiologic studies, CT scan. Consideration of Admission/Observation Escalation of care including admission/observation considered. I considered the following discharge prescriptions or medication management in the emergency department Medications were administered in the Emergency Department. See MAR. Independent interpretation of the following test(s) in the Emergency Department CT Scan: My interpretation is ct ab/pel . Test considered but Not performed: Ultrasound no renal usg. Historians other than the Patient: pt well informed. Care significantly affected by the following chronic conditions: cva, aneurysm. Counseling: I had a detailed discussion with the patient and/or guardian regarding the historical points, exam findings, and any diagnostic results supporting the discharge/admit diagnosis, lab results, radiology results. 01/22 13:45 Order name: CBC with Diff; Complete Time: 14:58 [facility] 01/22 13:45 Order name: CMP; Complete Time: 14:58 [facility] 01/22 13:45 Order name: Lipase; Complete Time: 14:58 [facility] 01/22 13:45 Order name: Test, Urine; Complete Time: 14:58 [facility] 01/22 13:45 Order name: Urinalysis w/ reflexes; Complete Time: 14:58 [facility] 01/22 14:17 Order name: Urine Culture [facility] 01/22 16:00 Order name: Blood Culture Adult (2) [facility] 01/22 16:00 Order name: Lactate w/ 2H reflex if indic.; Complete Time: 17:16 [facility] 01/22 18:55 Order name: Urinalysis w/ reflexes [facility] 01/22 18:55 Order name: CBC with Automated Diff [facility] 01/22 18:55 Order name: CBC with Automated Diff [facility] 01/22 18:55 Order name: Comprehensive Metabolic Panel [facility] 01/22 18:55 Order name: Comprehensive Metabolic Panel [facility] 01/22 13:45 Order name: CT Abd/Pelvis - IV Contrast Only; Complete Time: 17:10 [facility] 01/22 18:55 Order name: CONS Physician Consult [facility] 01/22 13:45 Order name: IV Saline Lock; Complete Time: 14:18 [facility] 01/22 13:45 Order name: Labs collected and sent; Complete Time: 14:18 [facility] 01/22 16:00 Order name: Man[place]; Complete Time: 17:02 [facility] Administered Medications: 14:18 Drug: NS 0.9% IV 1000 ml IV at 1 bolus Per protocol; 1000 mL bolus Route: IV; Rate: 1 kc6 bolus; Site: right antecubital; 17:08 Follow up: Response: No adverse reaction; IV Status: Completed infusion; IV Intake: kc6 1000ml 14:18 Drug: Famotidine IVP 20 mg IVP once; dilute with 10 mL 0.9% NaCl; give over 2 minutes kc6 Route: IVP; Site: right antecubital; 15:19 Follow up: Response: No adverse reaction kc6 14:18 Drug: Ondansetron IVP 4 mg IVP once; over 2 minutes Route: IVP; Site: right antecubital;kc6 15:19 Follow up: Response: No adverse reaction kc6 14:19 Drug: morphine IVP or IV 4 mg IVP once over 4 mins Route: IVP; Infused Over: 4 mins; kc6 Site: right antecubital; 15:19 Follow up: Response: No adverse reaction; Pain is unchanged, physician notified; RASS: kc6 Alert and Calm (0) 15:18 Drug: morphine IVP or IV 4 mg IVP once over 4 mins Route: IVP; Infused Over: 4 mins; kc6 Site: right antecubital; 17:09 Follow up: Response: No adverse reaction; Pain is unchanged, physician notified; RASS: kc6 Alert and Calm (0) 15:18 Drug: Ondansetron IVP 4 mg IVP once; over 2 minutes Route: IVP; Site: right antecubital;kc6 17:09 Follow up: Response: No adverse reaction kc6 15:18 Drug: Rocephin IV 1 grams IV at per protocol once; Given slow IV push per pharmacy kc6 instructions Route: IV; Rate: per protocol; Site: right antecubital; 17:09 Follow up: Response: No adverse reaction; IV Status: Completed infusion; IV Intake: 13eonq6 17:02 Drug: Viscous Lidocaine Mucous Membrane Liquid (4 %) 5 ml Mucous Membrane once; to kc6 bedside for manley Route: Mucous Membrane; 17:02 Drug: Ketorolac IVP 30 mg IVP once Route: IVP; Site: right antecubital; kc6 17:49 Follow up: Response: No adverse reaction; Pain is decreased kc6 17:02 Drug: Flomax PO 0.4 mg PO once Route: PO; kc6 17:49 Follow up: Response: No adverse reaction kc6 17:49 Drug: Ciprofloxacin PO 500 mg PO once Route: PO; kc6 18:19 Follow up: Response: No adverse reaction kc6 Disposition Summary: 01/23/24 17:27 Hospitalization Ordered Notes: Hospitalization Status: Observation brian Provider: Fernando Neri cha Location: Telemetry/MedSurg (observation) brian Condition: Stable brian Problem: new brian Symptoms: have improved brian Bed/Room Type: Standard [facility] Room Assignment: 213(01/23/24 19:42) wm Diagnosis - Hydronephrosis with renal and ureteral calculous obstruction - right uvj 10 mm brian - Abdominal tenderness brian - UTI/ Urinary tract infection, site not specified brian Forms: - Medication Reconciliation Form brian - SBAR form brian - Leadership Thank You Letter brian Signatures: Dispatcher [employer] Bill Bradshaw MD MD cha Sims, Lauren RN RN ld1 Kathi Castillo Kaitlyn, RN RN kc6 Corrections: (The following items were deleted from the chart) 19:42 17:27 [facility]
--- NOTE | 2024-01-23 17:28 | ER ---
Nurse's Notes [facility] Name: Zeynep Negron Age: 43 yrs Sex: Female : 1980 Arrival Date: 01/23/2024 Time: 13:36 Bed 6 Private MD: Diagnosis: Hydronephrosis with renal and ureteral calculous obstruction-right uvj 10 mm;Abdominal tenderness;UTI/ Urinary tract infection, site not specified Presentation: 01/22 13:54 Chief complaint:. Chief complaint: Patient states: Lower abdominal pain, KATIA flank pain ld1 X 1 hour. N/V. Coronavirus screen: At this time, the client does not indicate any symptoms associated with coronavirus-19. Ebola Screen: No symptoms or risks identified at this time. Initial Sepsis Screen: Does the patient meet any 2 criteria? No. Patient's initial sepsis screen is negative. Does the patient have a suspected source of infection? No. Patient's initial sepsis screen is negative. Risk Assessment: Do you want to hurt yourself or someone else? Patient reports no desire to harm self or others. Onset of symptoms was January 23, 2024 at 13:55. 13:54 Method Of Arrival: Ambulatory ld1 13:54 Acuity: JED 3 ld1 Triage Assessment: 13:55 General: Appears in no apparent distress. comfortable, Behavior is calm, cooperative, ld1 appropriate for age. Pain: Complains of pain in low back area, right lower quadrant and left lower quadrant Pain does not radiate. Pain currently is 10 out of 10 on a pain scale. Quality of pain is described as sharp, shooting, throbbing, Pain began suddenly, Is continuous. EENT: No signs and/or symptoms were reported regarding the EENT system. Neuro: Level of Consciousness is awake, alert, obeys commands, Oriented to person, place, time, situation. Cardiovascular: Capillary refill < 3 seconds Patient's skin is warm and dry. Respiratory: Airway is patent Respiratory effort is even, unlabored. GI: Abdomen is round non-distended, Reports lower abdominal pain, nausea, vomiting. : No signs and/or symptoms were reported regarding the genitourinary system. Historical: - Allergies: 13:55 Hydrocodone-Acetaminophen; ld1 13:55 Codeine; ld1 - PMHx: 13:55 Aneurysm; CVA; ld1 - PSHx: 13:55 Cholecystectomy; Appendectomy; partial hysterectomy; Ablation (partial hysterectomy); ld1 - Immunization history:: Adult Immunizations up to date. - Infectious Disease History:: Denies. - Social history:: Smoking status: Patient denies any tobacco usage or history of. - Family history:: not pertinent. Screenin:54 [facility] ED Fall Risk Assessment (Adult) History of falling in the last 3 months, kc6 including since admission No falls in past 3 months (0 pts) Confusion or Disorientation No (0 pts) Intoxicated or Sedated No (0 pts) Impaired Gait No (0 pts) Mobility Assist Device Used No (0 pt) Altered Elimination No (0 pt) Score/Fall Risk Level 0 - 2 = Low Risk. Abuse screen: Denies threats or abuse. Denies injuries from another. Nutritional screening: No deficits noted. Tuberculosis screening: No symptoms or risk factors identified. Assessment: 13:54 General: Appears in no apparent distress. uncomfortable, well groomed, well developed, kc6 Behavior is cooperative, appropriate for age, crying. Pain: Complains of pain in left lower quadrant and right lower quadrant and low back area. Neuro: Level of Consciousness is awake, alert, obeys commands, Oriented to person, place, time, situation, Appropriate for age. Cardiovascular: Capillary refill < 3 seconds. Respiratory: Airway is patent Trachea midline Respiratory effort is even, unlabored, Respiratory pattern is regular, symmetrical. GI: Abdomen is flat, non-distended, Bowel sounds present X 4 quads. Abd is soft X 4 quads Abdomen is tender to palpation in suprapubic area Reports lower abdominal pain, nausea, vomiting, Patient currently denies diarrhea. : No signs and/or symptoms were reported regarding the genitourinary system. Urine is clear. EENT: No signs and/or symptoms were reported regarding the EENT system. Derm: No signs and/or symptoms reported regarding the dermatologic system. Skin is intact, is healthy with good turgor, Skin is pink, warm \T\ dry. Musculoskeletal: No signs and/or symptoms reported regarding the musculoskeletal system. Circulation, motion, and sensation intact. Capillary refill < 3 seconds, Range of motion: intact in all extremities. 14:54 Reassessment: Patient appears in no apparent distress at this time. No changes from kc6 previously documented assessment. Patient and/or family updated on plan of care and expected duration. Pain level reassessed. Patient is alert, oriented x 3, equal unlabored respirations, skin warm/dry/pink. 15:54 Reassessment: Patient appears in no apparent distress at this time. No changes from kc6 previously documented assessment. Patient and/or family updated on plan of care and expected duration. Pain level reassessed. Patient is alert, oriented x 3, equal unlabored respirations, skin warm/dry/pink. 16:54 Reassessment: Patient appears in no apparent distress at this time. No changes from kc6 previously documented assessment. Patient and/or family updated on plan of care and expected duration. Pain level reassessed. Patient is alert, oriented x 3, equal unlabored respirations, skin warm/dry/pink. 18:18 Reassessment: Patient appears in no apparent distress at this time. No changes from kc6 previously documented assessment. Patient and/or family updated on plan of care and expected duration. Pain level reassessed. Patient is alert, oriented x 3, equal unlabored respirations, skin warm/dry/pink. 20:07 General: Appears comfortable, Behavior is cooperative, appropriate for age. Pain: ha1 Complains of pain in right upper quadrant and right low back Pain currently is 4 out of 10 on a pain scale. Neuro: Level of Consciousness is awake, alert, obeys commands, Oriented to person, place, time, situation, Appropriate for age. Cardiovascular: Capillary refill < 3 seconds. Respiratory: Airway is patent Respiratory effort is even, unlabored, Respiratory pattern is regular, symmetrical. 21:23 Reassessment: Patient appears in no apparent distress at this time. No changes from jw7 previously documented assessment. Patient and/or family updated on plan of care and expected duration. Pain level reassessed. Patient is alert, oriented x 3, equal unlabored respirations, skin warm/dry/pink. Vital Signs: 13:54 BP 153 / 98; Pulse 74; Resp 18; Temp 98.3(TE); Pulse Ox 100% on R/A; Weight 86.18 kg; ld1 Height 5 ft. 4 in. ; Pain 10/10; 14:54 BP 132 / 85; Pulse 70; Resp 16 S; Pulse Ox 100% on R/A; kc6 17:03 BP 153 / 94; Pulse 76; Resp 16 S; Pulse Ox 100% on R/A; kc6 18:18 BP 132 / 92; Pulse 97; Resp 18 S; Pulse Ox 100% on R/A; kc6 20:08 BP 139 / 99; Pulse 73; Resp 17 S; Pulse Ox 99% on R/A; ha1 21:00 BP 129 / 92; Pulse 91; Resp 17 S; Pulse Ox 99% on R/A; jw7 13:54 Body Mass Index 32.61 (86.18 kg, 162.56 cm) ld1 13:54 Pain Scale: Adult ld1 ED Course: 13:37 Patient arrived in ED. rg4 13:45 Bill Whitaker MD is Attending Physician. [facility] 13:50 Saloni Torres RN is Primary Nurse. kc6 13:54 Patient has correct armband on for positive identification. Placed in gown. Bed in low kc6 position. Call light in reach. Side rails up X 1. Adult w/ patient. Client placed on continuous cardiac and pulse oximetry monitoring. NIBP monitoring applied. Door closed. Noise minimized. Lights dimmed. Warm blanket given. 13:54 Inserted saline lock: 20 gauge in right antecubital area, using aseptic technique. kc6 Blood collected. 13:55 Triage completed. ld1 13:55 Arm band placed on right wrist. ld1 14:52 CT Abd/Pelvis - IV Contrast Only In Process Unspecified. EDMS 16:51 Lactate w/ 2H reflex if indic. Sent. kc6 16:51 Blood Culture Adult (2) Sent. kc6 16:58 Manley cath inserted, using sterile technique, 18 Fr., by vt, balloon inflated, to kc6 gravity drainage, clamped. returned clear yellow urine. Patient tolerated well. 17:26 Fernando Neri MD is Hospitalizing Provider. [facility] 19:30 Provided Education on: Use of Call Light. jw 21:24 No provider procedures requiring assistance completed. Patient admitted, IV remains in jw7 place. Administered Medications: 14:18 Drug: NS 0.9% IV 1000 ml IV at 1 bolus Per protocol; 1000 mL bolus Route: IV; Rate: 1 kc6 bolus; Site: right antecubital; 17:08 Follow up: Response: No adverse reaction; IV Status: Completed infusion; IV Intake: kc6 1000ml 14:18 Drug: Famotidine IVP 20 mg IVP once; dilute with 10 mL 0.9% NaCl; give over 2 minutes kc6 Route: IVP; Site: right antecubital; 15:19 Follow up: Response: No adverse reaction kc6 14:18 Drug: Ondansetron IVP 4 mg IVP once; over 2 minutes Route: IVP; Site: right antecubital;kc6 15:19 Follow up: Response: No adverse reaction kc6 14:19 Drug: morphine IVP or IV 4 mg IVP once over 4 mins Route: IVP; Infused Over: 4 mins; kc6 Site: right antecubital; 15:19 Follow up: Response: No adverse reaction; Pain is unchanged, physician notified; RASS: kc6 Alert and Calm (0) 15:18 Drug: morphine IVP or IV 4 mg IVP once over 4 mins Route: IVP; Infused Over: 4 mins; kc6 Site: right antecubital; 17:09 Follow up: Response: No adverse reaction; Pain is unchanged, physician notified; RASS: kc6 Alert and Calm (0) 15:18 Drug: Ondansetron IVP 4 mg IVP once; over 2 minutes Route: IVP; Site: right antecubital;kc6 17:09 Follow up: Response: No adverse reaction kc6 15:18 Drug: Rocephin IV 1 grams IV at per protocol once; Given slow IV push per pharmacy kc6 instructions Route: IV; Rate: per protocol; Site: right antecubital; 17:09 Follow up: Response: No adverse reaction; IV Status: Completed infusion; IV Intake: [id number] 17:02 Drug: Viscous Lidocaine Mucous Membrane Liquid (4 %) 5 ml Mucous Membrane once; to kc6 bedside for manley Route: Mucous Membrane; 17:02 Drug: Ketorolac IVP 30 mg IVP once Route: IVP; Site: right antecubital; kc6 17:49 Follow up: Response: No adverse reaction; Pain is decreased kc6 17:02 Drug: Flomax PO 0.4 mg PO once Route: PO; kc6 17:49 Follow up: Response: No adverse reaction kc6 17:49 Drug: Ciprofloxacin PO 500 mg PO once Route: PO; kc6 18:19 Follow up: Response: No adverse reaction kc Medication: 21:25 VIS not applicable for this client. jw7 Intake: 17:08 IV: 1000ml; Total: 1000ml. kc6 17:09 IV: 50ml; Total: 1050ml. kc6 Outcome: 17:27 Decision to Hospitalize by Provider. brian 21:24 Admitted to Med/surg accompanied by tech, via wheelchair, room 213, jw7 21:24 Condition: stable 21:24 Instructed on the need for admit, Demonstrated understanding of instructions, 21:25 Patient left the ED. jw7 Signatures: Dispatcher [employer] EDBill Sagastume MD MD cha Garcia, Rubi rg4 Hannah Alberto, RN RN ld1 Maryjo Flores RN RN jw7 Chrissy Schwartz RN RN elina1 Saloni Torres RN RN kc6 Corrections: (The following items were deleted from the chart) 21:25 21:24 Provided Education on: Use of Call Light. jw7 jw7
[2024-01-23] MEDS ORDERED: CIPROFLOXACIN HCL 500 MG TAB ONE (17:46)
[2024-01-23] MEDS ORDERED: ONDANSETRON 4 MG/2 ML VIAL IV PRN (18:45)
--- NOTE | 2024-01-23 18:45 | P.HP ---
Certification for Inpatient Patient admitted to: Inpatient With expected LOS: >2 Midnights Practitioner: I am a practitioner with admitting privileges, knowledge of patient current condition, hospital course, and medical plan of care. Services: Services provided to patient in accordance with Admission requirements found in Title 42 Section 412.3 of the Code of Federal Regulations Patient History Date of Service: 01/23/24 Reason for admission: Right flank pain History of Present Illness: 43 yrs old Female with no significant past medical history who was br ought to ER with abdominal pain and flank pain which started today. Pain is intermittent 8 out of 10 in severity located in the right flank radiating to the back, associated with diaphoresis and nausea. No fever or chills. Has dysuria Occasionally . Denies any diarrhea. No sick contacts. Patient was assessed in the ER and was found to have right-sided hydronephrosis and possible pyelonephritis and is admitted for further management Allergies codeine Allergy (Verified 01/23/24 22:12) Hives/Rash hydrocodone Adverse Reaction (Intermediate, Verified 01/23/24 22:12) Hives/Rash Hydrocodone-Acetaminophen Adverse Reaction (Intermediate, Uncoded 01/23/24 22:12) Hives/Rash Home medications list reviewed: Yes Home Medications: NK [No Home Meds] 12/03/14 - Past Medical/Surgical History Past Medical History: Reviewed- Non-Contributory Past Surgical History: Reviewed- Non-Contributory - Family History Family History: Reviewed- Non-Contributory - Social History Smoking Status: Never smoker Review of Systems 10-point ROS is otherwise unremarkable Physical Examination - Vital Signs Temperature: 98.3 F Blood Pressure: 152/98 Pulse: 78 Respirations: 18 Pulse Ox (%): 94 - Physical Exam General: Alert, Oriented x3, Cooperative, Mild distress HEENT: Atraumatic, Normocephalic Neck: Supple, 2+ carotid pulse no bruit, JVD not distended Respiratory: Clear to auscultation bilaterally, Normal air movement Cardiovascular: Regular rate/rhythm, Normal S1 S2 Capillary refill: <2 Seconds Gastrointestinal: Non-distended, W/out hepatosplenomegaly, Tenderness (Right Flank Pain + ) Musculoskeletal: No clubbing, No swelling Integumentary: No rashes, No breakdown Neurological: Normal speech, Normal strength at 5/5 x4 extr, Normal tone, Cranial nerves 3-12 intact Lymphatics: No axilla or inguinal lymphadenopathy - Studies Laboratory Data (last 24 hrs) 01/23/24 01/23/24 13:58 13:58 WBC 12.40 H Hgb 13.0 Hct 38.9 Plt Count 440 H Sodium 135 L Potassium 3.8 BUN 14 Creatinine 0.98 Glucose 125 H Total Bilirubin 0.4 AST 19 ALT 31 Alkaline Phosphatase 90 Lipase 42 Imagings Data: s All CT scans are performed using dose optimization technique as appropriate and may include automated exposure control or mA/KV adjustment according to patient size. FINDINGS: No suspicious findings in the lung bases. The liver, spleen, and pancreas show no suspicious findings. Gallbladder was surgically removed. Sequelae of gastric bypass. Moderate right hydroureteronephrosis, with perinephric and periureteric fat stranding. Elongated 9 mm calculus at the right vesicoureteral junction. Nonobstructing 13 mm calculus within the right renal pelvis. Fluid density cortical lesions bilaterally, largest measuring 14 mm at the left interpolar region, not well characterized, but suggestive of small cysts. No dilated bowel loops or bowel wall thickening. Fibroid uterus. No free air, free fluid or inflammatory stranding. No hernia, mass or bulky lymphadenopathy. The urinary bladder is without significant finding. No suspicious bony findings. IMPRESSION: Moderate right hydroureteronephrosis, with perinephric and periureteric fat stranding. Elongated 9 mm calculus at the right vesicoureteral junction. Nonobstructing 13 mm right renal pelvis calculus. Other findings as above. Assessment and Plan - Problems (Diagnosis) (1) Pyelonephritis Current Visit: Yes Status: Acute (2) Ureteric colic Current Visit: Yes Status: Acute Plan: Acute pyelonephritis Will start on IV antibiotic Will obtain cultures Change antibiotic as per sensitivity Pain control Monitor closely Obstructive uropathy Ureteric colic Patient has UVJ junction stone Started on IV hydration IV antibiotics to cover for infection CT consistent with hydronephrosis on the right side Will start on Flomax Monitor closely under telemetry Urology consulted Pain control Mild hyponatremia IV hydration Electrolytes monitor and replace accordingly GI/DVT prophylaxis Advanced directive full code Discharge Plan: Home Plan to discharge in: 48 Hours - Advance Directives Does patient have a Living Will: No Does patient have a Durable POA for Healthcare: No - Code Status/Comfort Care Code Status: Full Code Time Spent Managing Pts Care (In Minutes): 48
[2024-01-23] MEDS ORDERED: MORPHINE 2 MG/ML SYR IV PRN (18:53)
[2024-01-23] MEDS ORDERED: HYDROCODONE/APAP 7.5/325 MG TAB PO PRN (18:53)
[2024-01-23] MEDS: TAMSULOSIN 0.4 MG SR CAP PO SCH (21:00)
[2024-01-23] MEDS: ENOXAPARIN 40 MG/0.4 ML SQ SCH (22:25)
[2024-01-23] MEDS: NA CHLORIDE 0.9% 1,000 ML IV SCH (22:25)
[2024-01-23 22:30] VITALS: O2SAT 97; BMI 32.5
[2024-01-23] MEDS ORDERED: MORPHINE 4 MG/ML SYR IV PRN (23:20)
[2024-01-23] MEDS: KETOROLAC 30 MG/ML INJ IV PRN (23:23)
[2024-01-24] MEDS: PIPER TAZO 3.375 GM in NA CHLORIDE 0.9% 100 ML IV SCH (01:36)
[2024-01-24 04:09] LABS: Absolute Lymphocytes (CBC) 2.1 K/uL (0.7-4.9); Absolute Monocytes 0.9 K/uL (0.1-1.3); Absolute Neutrophil 8.7 K/uL (1.8-8.0); Basophils % 0.2 % (0-1.3); Eosinophils % 0.2 % (0-4.4); Hematocrit 35.5 % (36.0-45.0); Hemoglobin 11.9 g/dL (12.0-15.0); Lymphocytes % 17.7 % (15.3-44.8); MCH 29.4 pg (27.0-35.0); MCHC 33.4 g/dL (32.0-36.0); MCV 87.9 fL (80-100); MPV 7.2 fL (7.6-11.3); Neutrophils % 73.9 % (41.7-73.7); Platelets 372 thou/uL (152-406); RBC Red Blood Cell Count 4.03 M/uL (3.86-4.86); Red Cell Distribution Width 12.5 % (12.1-15.2)
[2024-01-24 04:28] LABS: Albumin 3.2 g/dL (3.4-5.0); Albumin/Globulin Ratio 0.8 (1.1-1.8); Anion Gap 7.5 mEq/L (5.0-15.0); Bilirubin Total 0.3 mg/dL (0.2-1.0); Globulin 3.8 g/dL (2.3-3.5); Potassium 3.5 mEq/L (3.5-5.1)
[2024-01-24] MEDS: POTASSIUM CL SA 10 MEQ TAB PO ONE (08:27)
--- NOTE | 2024-01-24 13:22 | P.PN ---
Subjective Date of Service: 01/24/24 Chief Complaint: Right flank pain Subjective: Improving In no apparent distress. Positive nausea Positive right flank pain Positive dysuria <Torri Pratt - Last Filed: 01/24/24 17:51> Date of Service: 01/24/24 <elpadmini - Last Filed: 01/24/24 18:02> Review of Systems Gastrointestinal: Nausea, Abdominal Pain (lower abd/suprapubic) Genitourinary: Dysuria <Torri Pratt - Last Filed: 01/24/24 17:51> Physical Examination - Vital Signs Temperature: 97.5 F Blood Pressure: 125/83 Pulse: 83 Respirations: 16 Pulse Ox (%): 99 - Physical Exam General: Alert, In no apparent distress, Oriented x3 HEENT: Atraumatic, Normocephalic Respiratory: Clear to auscultation bilaterally, Normal air movement Cardiovascular: No edema, Normal pulses, Regular rate/rhythm Gastrointestinal: Normal bowel sounds, Non-distended, Tenderness (lower abd / suprapubic) Integumentary: No rashes, No breakdown Neurological: Normal speech, Normal tone, Normal affect Urinary: Jaramillo catheter - Studies Laboratory Data (last 24 hrs) 01/23/24 01/23/24 13:58 13:58 WBC 12.40 H Hgb 13.0 Hct 38.9 Plt Count 440 H Sodium 135 L Potassium 3.8 BUN 14 Creatinine 0.98 Glucose 125 H Total Bilirubin 0.4 AST 19 ALT 31 Alkaline Phosphatase 90 Lipase 42 Microbiology Data (last 24 hrs): 01/23/24 16:49 Blood - Blood Anaerobic Blood Culture - Final <Torri Pratt - Last Filed: 01/24/24 17:51> - Studies Microbiology Data (last 24 hrs): 01/23/24 16:49 Blood - Blood Anaerobic Blood Culture - Final <padmini gallegos - Last Filed: 01/24/24 18:02> Assessment And Plan - Plan Problem list Nephroureterolithiasis Acute pyelonephritis Renal colic Hx stroke Nephroureterolithiasis Acute pyelonephritis Renal colic - CT abdomen pelvis 01/22: "Moderate right hydroureteronephrosis, with perinephric and periureteric fat stranding. Elongated 9 mm calculus at the right vesicoureteral junction. Nonobstructing 13 mm right renal pelvis calculus." -Urine culture 01/22: 3+ gram-negative rods; >100,000 CFU/mL -On empiric Zosyn pending culture results. - Will continue antibiotics for 14 days. Awaiting final culture results and will adjust antibiotics as appropriate. -Blood culture 01/22: Pending, follow-up with results -Continue as needed analgesics -Urology Dr. Tejada consulted. - Strain urine to collect stone and confirm she has indeed passed it DVT PPx: Lovenox Full code Dispo: ~24-48 hours <Torri Pratt - Last Filed: 01/24/24 17:51> - Plan Patient seen and examined, plan of care discussed with Torri Pratt. Urology input appreciated. Patient with renal colic, suspected acute pyelonephritis, nephroureterolithiasis. Urine culture is growing gram-negative rods. Urology recommended screening so she can pass the stones, followed by repeat KUB to assess residual stones. Supportive measures with analgesics, IV hydration Continue current IV antibiotics. <padmini gallegos - Last Filed: 01/24/24 18:02>
--- NOTE | 2024-01-24 15:50 | P.CNS ---
Date of Consult: 01/24/24 Reason for Consult: kidney stone Chief Complaint: Right flank pain History of Present Illness: 43-year-old woman with no significant past medical history presents with 1 week of flank pain. Within the last day or 2, the pain became severe, 10 out of 10 in intensity, and colicky. While it was in the bilateral flank regions, it also radiated into the suprapubic region on the right side. This pain was associated with some nausea and vomiting and ultimately resulted in her emergency department presentation. She denied any associated fever or chills. She was admitted yesterday afternoon, and the pain resolved by yesterday evening. She has a urethral Jaramillo catheter in place because she was in so much pain she found it difficult to get up to urinate and so they placed the catheter. Past medical history: None Past surgical history: Gastric bypass with cholecystectomy and T&A Allergies: Hydrocodone -respiratory depression Examination: Patient well-appearing and in no acute distress Alert, awake, oriented x 3 No dyspnea or sign of respiratory distress No cervical/supraclavicular adenopathy or thyromegaly Pulse 2+ radial and regular without tachycardia Abdomen soft, nontender No CVA tenderness elicited bilaterally Lying in hospital bed but able to move to a seated position with relative ease 01/23/2024 creatinine 0.98, hemoglobin 13.0, WBC 12.4, platelets 440, UA 2+ heme and 1+ leukocyte Estrace. Urine culture preliminary > 100 K colonies. 01/23/2024 CT abdomen and pelvis with contrast impression: Moderate right hydroureteronephrosis with perinephric and periureteric fat stranding. Elongated 9 mm calculus at the right UVJ. Nonobstructing 13 mm right renal pelvic calculus. -I reviewed the images of the CT, and indeed, there was a 3 mm x 8 mm pill shaped calculus present at the right intravesical UVJ Assessment and recommendation: 43-year-old healthy woman with nephroureterolithiasis, now with resolution of pain suggestive of possible stone passage, in the setting of possible acute cystitis/UTI without signs of pyelonephritis. -I counseled the patient on the importance of straining her urine to collect the stone and confirm she is indeed passed it. -Remove urethral Jaramillo catheter and check a catheter and tubing and bag to ensure stone did not collected by the catheter -KUB to assess visibility of her residual nephrolithiasis, but also to see if the ureteral calculus is visible -If patient has not collected the calculus prior to discharge from the hospital, continue to strain at home -Follow-up with me in the urology clinic in 2 to 3 weeks where if the stone has not been collected, surgical intervention may be required. Allergies codeine Allergy (Verified 01/23/24 22:12) Hives/Rash hydrocodone Adverse Reaction (Intermediate, Verified 01/23/24 22:12) Hives/Rash Hydrocodone-Acetaminophen Adverse Reaction (Intermediate, Uncoded 01/23/24 22:12) Hives/Rash Home medications list reviewed: Yes Home Medications: NK [No Home Meds] 12/03/14 - Past Medical/Surgical History Diabetic: No -: Stroke 2016 -: Cholecystectomy 2017 - Social History Smoking Status: Never smoker Alcohol use: No Caffeine use: Yes Place of Residence: Home Physical Examination Temp Pulse Resp BP Pulse Ox 97.5 F 83 16 125/83 99 01/24/24 13:22 01/24/24 13:22 01/24/24 13:22 01/24/24 13:22 01/24/24 13:22 - Problems (1) Nephroureterolithiasis Current Visit: Yes Status: Acute (2) Renal colic, bilateral Current Visit: Yes Status: Acute (3) Acute cystitis Current Visit: Yes Status: Acute Critical Care: No Time Spent Managing Pts care (In Minutes): 35
--- NOTE | 2024-01-24 15:57 | CON ---
History Of Present Illness: The patient is a 43-year-old female. I was consulted for evaluation of pyelonephritis. Patient has significant past medical illnesses with history of a stroke at age 26. Coming to the emergency room with abdominal pain and burning urination, which started on the day of a dmission, according to the patient. The patient also had nausea and vomiting, which has improved. S he had severe pain to the right flank. CT abdomen showed the patient has a 1.3 cm calculus in the ri ght pelvis region and some hydroureteronephrosis. The patient is feeling better today. Past Medical History: As per HPI. Social History: Nonsmoker, nondrinker. Family History: Noncontributory. Medications: Zosyn. See MAR for other medications. Allergies: CODEINE, HYDROCODONE. Review of Systems: A 10-point review was performed. Physical Examination: General: This is a 43-year-old female, lying in bed, not in any acute cardiopulmonary distress. Vital Signs: Temperature 97, pulse 83, respirations 15, blood pressure 132/74. HEENT: Unremarkable. Neck: Supple. Lungs: Basal crackles. Heart: S1, S2. Regular. Abdomen: Soft. Bowel sounds present. Tenderness in the lower quadrants and right flank area. Extremities: No edema. Laboratory Data: Shows WBC 11.8 down from 12.4, hemoglobin 11.9, platelets are 372. Chemistry shows BUN 13, creatinine 0.8, albumin of 3.2. Micro data; urine cultures are growing gram-negative rods. Blood cultures are negative today. CT sc an of abdomen shows right-sided renal calculi in the pelvis region of 13 mm. Moderate right hydroure teronephrosis with perinephric and periureteric fat stranding. Elongated 9 mm calculus at the right vesicoureteral junction also noted. Assessment And Plan: Right-sided pyelonephritis. Right-sided renal stone causing inflammatory burks es. Gram-negative rods are growing in her urine. Blood cultures are pending. Continue Zosyn for 2 weeks. Consider getting urology evaluation for possible nephrolithiasis. We will follow the patient as needed. Thank you Dr. Mendoza for consult. NF/MODL Voice ID: [id number] Report ID: [id number]
[2024-01-24] MEDS: Mupirocin NASAL 2 APPL/1 GM TUBE NAS SCH (20:22)
--- NOTE | 2024-01-25 08:51 | P.PN ---
Date of Service: 01/25/24 Subjective: Improving Physical Examination Temp Pulse Resp BP Pulse Ox 98.3 F 92 H 17 108/64 97 01/25/24 04:00 01/25/24 04:00 01/25/24 04:00 01/25/24 04:00 01/25/24 04:00 General: Alert, In no apparent distress, Oriented x3 HEENT: Atraumatic, Normocephalic Respiratory: Clear to auscultation bilaterally, Normal air movement Cardiovascular: No edema, Normal pulses, Regular rate/rhythm Gastrointestinal: Normal bowel sounds, Non-distended. Integumentary: No rashes, No breakdown Neurological: Normal speech, Normal tone, Normal affect Urinary: Jaramillo catheter Assessment And Plan Problem list Nephroureterolithiasis Acute pyelonephritis Renal colic Hx stroke Nephroureterolithiasis Acute pyelonephritis Renal colic - CT abdomen pelvis 01/22: "Moderate right hydroureteronephrosis, with perinephric and periureteric fat stranding. Elongated 9 mm calculus at the right vesicoureteral junction. Nonobstructing 13 mm right renal pelvis calculus." -Blood culture 01/22: No growth to date -Urine culture 01/22: Proteus mirabilis -Zosyn de-escalated to ciprofloxacin following culture results. Continue antibiotic therapy for 14 days (01/23-02/05) -Continue as needed analgesics -Urology Dr. Tejada consulted. - Strain urine to collect stone and confirm she has indeed passed it DVT PPx: Lovenox Full code Dispo: ~24-48 hours
[2024-01-25 09:09] LABS: Anion Gap 5.5 mEq/L (5.0-15.0); Potassium 4.5 mEq/L (3.5-5.1)
[2024-01-25] MEDS: CIPROFLOXACIN 400mg IV 400 MG/200 ML BAG IV SCH (10:24)
--- NOTE | 2024-01-25 11:57 | RAD REPORT ---
EXAM DESCRIPTION: RAD - Abdomen 1 View (KUB) - 01/25/2024 9:28 am CLINICAL HISTORY: Kidney and ureteral stones COMPARISON: No comparisons TECHNIQUE: Single AP view of the abdomen. FINDINGS: Nonobstructive bowel gas pattern. No air-fluid levels, free air, or pneumatosis. No suspic ious calcifications to suggest renal calculi. Right upper quadrant surgical clips likely related to p rior cholecystectomy. No significant bony abnormality. IMPRESSION: No suspicious calcifications radiographically to suggest renal calculi.
[2024-01-25] MEDS: ACETAMINOPHEN 325 MG TABLET PO PRN (12:20)
--- NOTE | 2024-01-25 13:35 | RAD REPORT ---
EXAM DESCRIPTION: CT - Abdomen Pelvis Wo Contrast - 01/25/2024 1:18 pm CLINICAL HISTORY: Abdominal pain. Follow-up right hydronephrosis and UPJ stone COMPARISON: Abdomen Pelvis W Contrast dated 01/23/2024 TECHNIQUE: CT imaging of the abdomen and pelvis was performed without contrast. Solid organ, bowel a nd vascular assessment is limited due to lack of IV and oral contrast. All CT scans are performed using dose optimization technique as appropriate and may include automated exposure control or mA/KV adjustment according to patient size. FINDINGS: The lower lung [place] are clear.Postsurgical changes are present about the stomach. Cholec ystectomy clips. The liver, spleen, pancreas, adrenal glands and left kidney are within normal limits for a limited no n-contrast examination. Previously noted right UVJ stone no longer visualized. There continues to be mild residual right hydr onephrosis. 18 mm oblong stone is seen in the right renal pelvis. No bowel obstruction, free air, free fluid or abscess. The appendix is not identified as a discrete structure, however, no secondary findings of appendicitis are identified. The osseous structures are within normal limits. IMPRESSION: 18 mm stone is present right renal pelvis. Previously noted right UVJ stone is no longer seen. Mild residual right-sided hydronephrosis and hydroureter. A limited non-contrast examination was performed as detailed.
[2024-01-25 14:41] VITALS: BP 140/81; TEMP 97.6
--- NOTE | 2024-01-25 21:06 | P.DS ---
Admission Date: 01/23/24 Discharge Date: 01/25/24 Reason for Admission: Right flank pain Consultations: Urology: Dr. Tejada Brief History of Present Illness: 43 yrs old Female with no significant past medical history who was brought to ER with abdominal pain and flank pain which started 01/22. Pain is intermittent and rated 8 out of 10 in severity located in the right flank radiating to the back, associated with diaphoresis and nausea. No fever or chills. Has dysuria Occasionally . Denies any diarrhea. No sick contacts. Patient was assessed in the ER and was found to have right-sided hydronephrosis and possible pyelonephritis and was admitted for further management. Hospital Course: Problem list Nephroureterolithiasis Acute pyelonephritis Renal colic Hx stroke Presented with 1 week of right flank pain which had been worsening. Pain is rated 10/10 on admit. Found to have pyelonephritis, nephroureterolithiasis. UVJ stone treated with IV hydration, analgesics, and IV antibiotic. Urine culture growing proteus mirabilis, antibiotic de-escalated to oral ciprofloxacin. Reports pain is now manageable at 3/4 out of 10. KUB x-ray obtained to evaluate assess visibility of her residual nephrolithiasis, which reported no suspicious calcifications to suggest renal calculi. Patient deemed stable to discharge home. Please follow-up with Dr. Tejada urology clinic in 2-3 weeks. Continue to strain urine to collect the stone and confirm it has passed. New Medications - Ciprofloxacin 500mg PO BID x 12 days Follow-up: - Urology Dr. Tejada in the urology clinic in 2 to 3 weeks. Please call to schedule appointment. General: Alert, In no apparent distress, Oriented x3 HEENT: Atraumatic, Normocephalic Respiratory: Clear to auscultation bilaterally, Normal air movement Cardiovascular: No edema, Normal pulses, Regular rate/rhythm Gastrointestinal: Normal bowel sounds, Non-distended. Integumentary: No rashes, No breakdown Neurological: Normal speech, Normal tone, Normal affect Urinary: Jaramillo catheter <Torri Pratt - Last Filed: 01/25/24 20:55> Admission Date: 01/23/24 Discharge Date: 01/26/24 Hospital Course: Patient reported significant improvement in her symptoms. She has tolerated diet, she has been afebrile with stable vitals. Repeat CT abdomen pelvis shows that the previous UVJ stone is no longer present and the patient only has some mild residual right-sided hydronephrosis. Urine culture grew pansensitive Proteus mirabilis. Patient is prescribed with ciprofloxacin to complete [address] Tejada recommended follow-up with him and examined within 2 to 3 weeks. <padmini gallegos - Last Filed: 01/26/24 06:49> Disposition: ROUTINE DISCHARGE Discharge Condition: GOOD Vital Signs/Physical Exam: Temp Pulse Resp BP Pulse Ox 97.6 F 70 17 140/81 98 01/25/24 12:00 01/25/24 12:00 01/25/24 12:00 01/25/24 12:00 01/25/24 12:00 Laboratory Data at Discharge: WBC 11.80 thou/uL (4.3-10.9) H 01/24/24 03:01 Hgb 11.9 g/dL (12.0-15.0) L D 01/24/24 03:01 Hct 35.5 % (36.0-45.0) L 01/24/24 03:01 Plt Count 372 thou/uL (152-406) 01/24/24 03:01 Sodium 135 mEq/L (136-145) L 01/25/24 08:40 Potassium 4.5 mEq/L (3.5-5.1) 01/25/24 08:40 BUN 40 mg/dL (7-18) H 01/25/24 08:40 Creatinine 1.08 mg/dL (0.55-1.02) H 01/25/24 08:40 Glucose 136 mg/dL (74-106) H 01/25/24 08:40 Total Bilirubin 0.3 mg/dL (0.2-1.0) 01/24/24 03:01 AST 15 U/L (15-37) 01/24/24 03:01 ALT 23 U/L (13-56) 01/24/24 03:01 Alkaline Phosphatase 68 U/L (45-117) D 01/24/24 03:01 Lipase 42 U/L (13-75) 01/23/24 13:58 <Torri Pratt - Last Filed: 01/25/24 20:55> Vital Signs/Physical Exam: Temp Pulse Resp BP Pulse Ox 97.6 F 70 17 140/81 98 01/25/24 12:00 01/25/24 12:00 01/25/24 12:00 01/25/24 12:00 01/25/24 12:00 Laboratory Data at Discharge: WBC 11.80 thou/uL (4.3-10.9) H 01/24/24 03:01 Hgb 11.9 g/dL (12.0-15.0) L D 01/24/24 03:01 Hct 35.5 % (36.0-45.0) L 01/24/24 03:01 Plt Count 372 thou/uL (152-406) 01/24/24 03:01 Sodium 135 mEq/L (136-145) L 01/25/24 08:40 Potassium 4.5 mEq/L (3.5-5.1) 01/25/24 08:40 BUN 40 mg/dL (7-18) H 01/25/24 08:40 Creatinine 1.08 mg/dL (0.55-1.02) H 01/25/24 08:40 Glucose 136 mg/dL (74-106) H 01/25/24 08:40 Total Bilirubin 0.3 mg/dL (0.2-1.0) 01/24/24 03:01 AST 15 U/L (15-37) 01/24/24 03:01 ALT 23 U/L (13-56) 01/24/24 03:01 Alkaline Phosphatase 68 U/L (45-117) D 01/24/24 03:01 Lipase 42 U/L (13-75) 01/23/24 13:58 <padmini gallegos - Last Filed: 01/26/24 06:49> <Torri Pratt - Last Filed: 01/25/24 20:55> <padmini gallegos - Last Filed: 01/26/24 06:49> Home Medications: Ciprofloxacin HCl 500 mg PO BID 12 Days #24 01/25/24 New Medications: Ciprofloxacin HCl 500 mg PO BID 12 Days #24 Physician Discharge Instructions: Presented with 1 week of right flank pain which had been worsening. Pain is rated 10 out of 10 on admit. Found to have pyelonephritis, nephroureterolithiasis treated with IV hydration, analgesics, IV antibiotic de- escalated to ciprofloxacin following culture results. Reports pain is now manageable at 3 or 4 out of 10. Abdominal x-ray obtained to evaluate assess visibility of her residual nephrolithiasis, which reported no suspicious calcifications to suggest renal calculi. Patient deemed stable to discharge home. Please follow-up with Dr. Tejada urology clinic in 2-3 weeks. Continue to strain urine to collect the stone and confirm it has passed. New Medications - Ciprofloxacin 500mg PO BID x 12 days Follow-up: - Urology Dr. Tejada in the urology clinic in 2 to 3 weeks. Please call to schedule appointment. Followup: Victor Hugo Tejada [ACTIVE - CAN ADMIT] - (call for an apointment for 2-3 weeks.)
== END 2024-01-25 17:13 | disposition home or self-care (01) | DRG 690 ==
LOC: ER 13:36 → ERHOLD 18:45 → 2ND 20:47
PROVIDERS: ADMIT Family Medicine; ATTEND Internal Medicine
PROC: 02HV33Z Insertion of Infusion Device into Superior Vena Cava, Percutaneous Approach (ICD-10-PCS; principal; 2024-01-24)
PROC: 0T9B70Z Drainage of Bladder with Drainage Device, Via Natural or Artificial Opening (ICD-10-PCS; 2024-01-24)
DX: N10 Acute pyelonephritis (principal); E87.1 Hypo-osmolality and hyponatremia; N23 Unspecified renal colic; B96.4 Proteus (mirabilis) (morganii) as the cause of diseases classified elsewhere; Z88.5 Allergy status to narcotic agent; Z90.49 Acquired absence of other specified parts of digestive tract; Z86.73 Personal history of transient ischemic attack (TIA), and cerebral infarction without residual deficits; Z98.84 Bariatric surgery status; Z90.711 Acquired absence of uterus with remaining cervical stump
CPT/HCPCS: 36415; 51702; 74018; 74176; 74177; 80048; 80053; 81001; 81025; 83605; 83690; 85025; 87040; 87077; 87086; 87088; 87186; 96361; 96365; 96366; 96375; 99285; J0696; J0744; J1650; J2405; J2543; J7030; Q9967

== ENCOUNTER 2024-08-15 14:37 | Observation (INO) | payer SELFPAY ==
--- OUTSIDE RECORDS SUMMARY | 2024-08-15 14:40 | XMS REPORT | Clinical Summary ---
Author Name Unknown Organization [facility] Address [address] [place] [id number] Care Team Providers Care Internet Marketing Director Name Role Phone Robert Vega MD Primary Care Provider [phone] Social History Tobacco Use Types Packs/Day Years Used Date Smoking Tobacco: Never Assessed Comments Unknown Sex and Gender Information Value Date Recorded Sex Assigned at Female 01/27/2023 4:55 PM CDT Legal Sex Female 4:12 PM CDT Gender Identity Female 01/27/2023 4:55 PM CDT Sexual Orientation Not on file Plan of Treatment Not on file Care Teams Internet Marketing Director Relationship Specialty Start Date End Date Robert Vega MD [address] [place] [id number] [email or web address] PCP - General Endocrinology 01/31/23
[2024-08-15] MEDS ORDERED: MORPHINE 4 MG/ML SYR ONE (15:08)
[2024-08-15] MEDS ORDERED: NA CHLORIDE 0.9% 1,000 ML ONE (15:08)
[2024-08-15] MEDS ORDERED: ONDANSETRON 4 MG/2 ML VIAL ONE (15:08)
[2024-08-15 15:14] LABS: Absolute Lymphocytes (CBC) 2.2 K/uL (0.7-4.9); Absolute Monocytes 0.5 K/uL (0.1-1.3); Absolute Neutrophil 6.5 K/uL (1.8-8.0); Basophils % 0.5 % (0-1.3); Eosinophils % 0.3 % (0-4.4); Hematocrit 40.8 % (36.0-45.0); Hemoglobin 14.1 g/dL (12.0-15.0); Lymphocytes % 23.8 % (15.3-44.8); MCH 29.7 pg (27.0-35.0); MCHC 34.6 g/dL (32.0-36.0); MCV 85.7 fL (80-100); MPV 6.9 fL (7.6-11.3); Monocytes % 5.5 % (3.3-12.3); Neutrophils % 69.9 % (41.7-73.7); Nucleated Red Blood Cells % 0.1 % (0-0); Platelets 336 thou/uL (152-406); RBC Red Blood Cell Count 4.76 M/uL (3.86-4.86); Red Cell Distribution Width 12.5 % (12.1-15.2)
[2024-08-15 15:19] LABS: PT Prothrombin Time 11.6 SECONDS (9.4-12.5); Protime INR 1.04
[2024-08-15 15:34] LABS: ALT/SGPT 17 U/L (13-56); AST/SGOT 15 U/L (15-37); Albumin 3.7 g/dL (3.4-5.0); Albumin/Globulin Ratio 0.9 (1.1-1.8); Alkaline Phosphatase 67 U/L (45-117); Anion Gap 13.7 mEq/L (5.0-15.0); BUN Blood Urea Nitrogen 10 mg/dL (7-18); Bicarbonate 21 mEq/L (21-32); Bilirubin Total 0.4 mg/dL (0.2-1.0); Globulin 4.2 g/dL (2.3-3.5); Glomerular Filtration Rate 111 ml/min (=/>90); Glucose Level 105 mg/dL (74-106); Potassium 3.7 mEq/L (3.5-5.1); Protein, Total 7.9 g/dL (6.4-8.2); Sodium Level 136 mEq/L (136-145)
[2024-08-15 15:35] LABS: Bilirubin Direct < 0.2 mg/dL (0-0.2); Bilirubin Indirect, Calculated 0.2 mg/dL (0.2-0.8); Troponin High Sensitivity < 3.0 pg/mL (<58.9)
[2024-08-15 16:57] LABS: Sqamous Epithelial <5 /HPF (None Seen); Urine Bacteria <20 /HPF (<20); Urine Bilirubin NEGATIVE (Negative); Urine Blood Trace (Negative); Urine Clarity Extremely Turbid (Clear); Urine Color Colorless (Yellow); Urine Crystals Unidentified Few /HPF (None Seen); Urine Culture Reflex Order REFLEXED; Urine Glucose NEGATIVE (Negative); Urine Ketones 1+ (Negative); Urine Microscopic Reflex YN ORDER UMIC; Urine Mucus 2+ /HPF (None Seen); Urine Nitrite 1+ (Negative); Urine Protein NEGATIVE (Negative); Urine RBC 21-50 /HPF (None Seen); Urine Urobilinogen Normal (Normal); Urine WBC >50 /HPF (<5); Urine WBC Clump Occasional /HPF (None Seen); Urine Yeast (Budding) Few /HPF (None Seen); Urine pH 7.5 (5.0-7.0)
--- NOTE | 2024-08-15 17:07 | RAD REPORT ---
EXAM: CT brain without contrast HISTORY: Headache COMPARISON: 2021 TECHNIQUE: Multiple contiguous axial images were obtained and a CT of the brain without contrast.. Sagittal and coronal reconstruction performed. Automated exposure control, adjustment of the mA and/or kV according to patient size, and/or iterative reconstruction. Unless otherwise specified, incidental f indings do not require dedicated imaging follow-up FINDINGS: An intracranial bleed is not seen Ventricles are normal caliber No extra-axial fluid collection noted No significant hypodensity within the brain No fluid within the visualized sinuses or mastoids noted. IMPRESSION: No acute intracranial abnormality noted. If the patient's symptoms persist MRI of the brain would be recommended.
--- NOTE | 2024-08-15 17:15 | RAD REPORT ---
EXAM: CTA of the chest, abdomen and pelvis HISTORY: Chest and abdominal pain COMPARISON: None TECHNIQUE: Multiple contiguous axial images were obtained a CTA of the chest and abdomen with contras t per aortic dissection protocol. Sagittal and coronal 3-D MIP reformats were performed. 100 cc Isovue-370 administered intravenously.Automated exposure control, adjustment of the mA and kV accordi ng to the patient size, and iterative reconstruction. Unless otherwise specified, incidental findings do not require dedicated imaging follow-up. FINDINGS: The opacification of the aorta is suboptimal. No gross aortic dissection seen. No aortic aneurysm Celiac, SMA and TRENT dO not demonstrate a significant abnormality. Renal arteries do not demonstrate a significant abnormality. Lungs are clear Liver, spleen, pancreas, adrenals, left kidney and bladder do not demonstrate a significant abnormali ty 1.5 cm calculus right renal pelvis. Mild right hydronephrosis. Mild delayed concentration of contrast right kidney when compared to the left. Stranding adjacent to the right renal pelvis and proximal right ureter. Enhancement of the wall proximal right ureter No evidence of diverticulitis. Postsurgical changes stomach. No adnexal mass IMPRESSION: No gross evidence of an aortic dissection 1.5 cm calculus right renal pelvis with mild right hydronephrosis. Stranding adjacent to the right renal pelvis and proximal right ureter. Enhancement of the wall proxi mal right ureter. These findings may indicate ascending urinary tract infection
--- NOTE | 2024-08-15 17:16 | RAD REPORT ---
Procedure: Chest Single View HISTORY: Chest pain COMPARISON: 2021 FINDINGS: The lungs appear clear of acute infiltrate. No significant pleural effusion noted. The heart is normal size. IMPRESSION: No acute abnormality is displayed.
[2024-08-15] MEDS ORDERED: CEFTRIAXONE 1000 MG/VIAL ONE (18:45)
--- NOTE | 2024-08-15 20:21 | EDPHYS ---
Physician Documentation [facility] Name: Zeynep Negron Age: 44 yrs Sex: Female : 1980 Arrival Date: 08/15/2024 Time: 14:37 Bed 16 Private MD: ED Physician Finn Hare HPI: 08/15 13:00 This 44 yrs old Female presents to ER via EMS with complaints of Chest Pain. cp 13:00 The patient or guardian reports chest pain that is located primarily in the anterior cp chest wall. 13:00 Onset: today. cp 13:00 The pain radiates to jaw. cp 13:00 Associated signs and symptoms: Pertinent positives: headache, body aches. cp 13:00 The chest pain is described as constant. Duration: The patient or guardian reports a cp single episode, that is still ongoing, and worsening. RESPIRATORY CARE PROGRAM DIRECTOR: 21:34 LMP N/A - Hysterectomy, Not me1 Historical: - Allergies: 14:50 Codeine; me1 14:50 Hydrocodone-Acetaminophen; me1 - PMHx: 14:50 Aneurysm; CVA; me1 - PSHx: 14:50 ablation (l ); Appendectomy; partial hysterectomy; Cholecystectomy; me1 - Immunization history:: Adult Immunizations up to date. - Infectious Disease History:: Denies. - Social history:: Smoking status: Patient denies any tobacco usage or history of. ROS: 13:05 Cardiovascular: Positive for chest pain, Negative for palpitations, cp 13:05 Constitutional: Positive for body aches, Negative for chills, fever, poor PO intake, cp 13:05 Eyes: Negative for injury, pain, redness, and discharge, cp 13:05 Respiratory: Negative for cough, wheezing, 13:05 Abdomen/GI: Negative for abdominal pain, vomiting, diarrhea, constipation, 13:05 Neuro: Positive for headache, Negative for altered mental status, Exam: 13:10 Constitutional: The patient appears in no acute distress, alert, awake, cp non-diaphoretic, non-toxic, well developed, well nourished, uncomfortable, 13:10 Head/Face: Normocephalic, atraumatic. cp 13:10 Eyes: Periorbital structures: appear normal, Conjunctiva: normal, no exudate, no injection, Sclera: no appreciated abnormality, Lids and lashes: appear normal, bilaterally, 13:10 ENT: External ear(s): are unremarkable, Nose: is normal, Mouth: Lips: moist, Oral mucosa: pink and intact, moist, Posterior pharynx: Airway: no evidence of obstruction, patent, 13:10 Neck: ROM/movement: is normal, is supple, without pain, no range of motions limitations, 13:10 Chest/axilla: Inspection: normal, Palpation: crepitus, is not appreciated, tenderness, of the mid-sternal area, that partially reproduces the patient's complaints, 13:10 Cardiovascular: Rate: normal, Rhythm: regular, Pulses: Pulses are 2+ in right radial artery and left radial artery. Edema: is not appreciated, JVD: is not appreciated, 13:10 Respiratory: the patient does not display signs of respiratory distress, Respirations: cp labored breathing, that is mild, Breath sounds: are clear throughout, no decreased breath sounds, no stridor, no wheezing, 13:10 Abdomen/GI: Inspection: abdomen appears normal, Palpation: abdomen is soft and non-tender, in all quadrants, 13:10 Neuro: Orientation: to person, place \T\ time. Mentation: is normal, Motor: no acute changes, Sensation: no acute changes, 15:35 ECG was reviewed by the Attending Physician. cp Vital Signs: 14:48 BP 154 / 93; Pulse 88; Resp 24; Temp 98.3; Pulse Ox 100% ; Weight 86.18 kg; Height 5 me1 ft. 4 in. ; Pain 10/10; 15:00 BP 138 / 76; Pulse 69; Resp 16; Pulse Ox 100% ; me1 15:21 Pain 2/10; me1 16:00 BP 134 / 81; Pulse 76; Resp 15; Pulse Ox 97% ; me1 17:10 BP 125 / 80; Pulse 75; Resp 16; Pulse Ox 99% ; me1 18:00 BP 120 / 80; Pulse 72; Resp 16; Pulse Ox 95% ; me1 19:00 BP 122 / 80; Pulse 67; Resp 16; Pulse Ox 96% ; me1 20:00 BP 126 / 85; Pulse 72; Resp 15; Pulse Ox 97% ; me1 21:00 BP 126 / 90; Pulse 85; Resp 15; Pulse Ox 97% ; me1 14:48 Body Mass Index 32.61 (86.18 kg, 162.56 cm) me1 14:48 Pain Scale: Adult me1 15:21 Pain Scale: Adult me1 MDM: 14:50 Medical Screening Exam initiated cp 19:35 Data reviewed: vital signs, nurses notes, lab test result(s), EKG, radiologic studies, cp CT scan, plain films, and as a result, I will admit patient. 19:35 Management of patient was discussed with the following: Hospitalist: DR Neri who will cp admit after discussion. I considered the following discharge prescriptions or medication management in the emergency department Medications were administered in the Emergency Department. See NOV. 08/15 14:55 Order name: Basic Metabolic Panel; Complete Time: 15:54 08/15 14:55 Order name: CBC with Diff; Complete Time: 15:54 08/15 17:04 Interpretation: Normal except: MPV 6.9. 08/15 14:55 Order name: LFT's; Complete Time: 15:54 08/15 17:05 Interpretation: Normal except: GLOB 4.2; A/G 0.9. 08/15 14:55 Order name: Magnesium; Complete Time: 15:54 08/15 14:55 Order name: PT-INR; Complete Time: 15:54 08/15 14:55 Order name: Troponin HS; Complete Time: 15:54 08/15 17:05 Interpretation: Reviewed. 08/15 14:55 Order name: Urinalysis w/ reflexes; Complete Time: 17:03 08/15 17:03 Interpretation: Normal except: [facility] Extremely Turbid; UKET 1+; UBLD Trace; UPH 7.5; cp UNIT 1+; UESTR 500; UWBC >50; URBC 21-50; UWBC Clump Occasional; BYST Few. 08/15 14:55 Order name: Test, Urine; Complete Time: 17:03 08/15 17:01 Order name: Urine Culture EDMS 08/15 17:55 Order name: Troponin High Sensitivity; Complete Time: 19:33 08/15 19:33 Interpretation: Reviewed. 08/15 20:58 Order name: Urinalysis w/ reflexes EDMS 08/15 20:59 Order name: CBC with Automated Diff EDMS 08/15 20:59 Order name: CBC with Automated Diff EDOH 08/15 20:59 Order name: Comprehensive Metabolic Panel EDOH 08/15 20:59 Order name: Comprehensive Metabolic Panel [facility] 08/15 20:59 Order name: Troponin High Sensitivity EDOH 08/15 20:59 Order name: Troponin High Sensitivity [facility] 08/15 20:59 Order name: Troponin High Sensitivity [facility] 08/15 20:59 Order name: Troponin High Sensitivity [facility] 08/15 14:55 Order name: XRAY Chest (1 view); Complete Time: 17:53 cp 08/15 17:53 Interpretation: Report review. 08/15 15:56 Order name: CT Head Brain wo Cont; Complete Time: 17:53 cp 08/15 17:53 Interpretation: Report reviewed. 08/15 15:57 Order name: CT Aorta for Dissection; Complete Time: 17:53 cp 08/15 20:58 Order name: CONS Physician Consult [facility] 08/15 14:55 Order name: Cardiac monitoring; Complete Time: 15:06 cp 08/15 14:55 Order name: EKG - Nurse/Tech; Complete Time: 15:33 cp 08/15 14:55 Order name: IV Saline Lock; Complete Time: 15:06 cp 08/15 14:55 Order name: Labs collected and sent; Complete Time: 15:06 cp 08/15 14:55 Order name: O2 Per Protocol; Complete Time: 15:06 cp 08/15 14:55 Order name: O2 Sat Monitoring; Complete Time: 15:06 cp EC:35 Rate is 81 beats/min. Rhythm is regular. AR interval is normal. QRS interval is normal. cp QT interval is normal. T waves are Inverted in leads aVR, V3. Interpreted by me. Reviewed by me. Administered Medications: 15:11 Drug: Ondansetron IVP 4 mg IVP once; over 2 minutes Route: IVP; Site: right antecubital;me1 15:20 Follow up: Response: No adverse reaction; Nausea is decreased me1 15:11 Drug: NS 0.9% IV 1000 ml IV at 1 bolus Per protocol; to be given as a bolus over 60 me1 minutes Route: IV; Rate: 1 bolus; Site: right antecubital; 17:10 Follow up: Response: No adverse reaction; IV Status: Completed infusion; IV Intake: me1 1000ml 15:12 Drug: morphine IVP or IV 4 mg IVP once over 4 mins Route: IVP; Infused Over: 4 mins; me1 Site: right antecubital; 15:21 Follow up: Pain 2/10 Adult; Response: No adverse reaction; Pain is decreased me1 18:53 Drug: Rocephin IV 1 grams IV at calculated rate once; Given slow IV push per pharmacy me1 instructions Route: IV; Rate: calculated rate; Site: right antecubital; 18:55 Follow up: Response: No adverse reaction; IV Status: Completed infusion me1 Disposition Summary: 08/15/24 20:20 Hospitalization Ordered Notes: Hospitalization Status: Observation cp Provider: Fernando Neri cp Condition: Stable cp Problem: new cp Symptoms: have improved cp Bed/Room Type: Standard Location: [facility] ER HOLD(08/15/24 20:27) rv1 Room Assignment: ERHOLD-(08/15/24 20:27) rv1 Diagnosis - Chest pain, unspecified cp - Abnormal electrocardiogram [ECG] [EKG] cp Forms: - Medication Reconciliation Form cp - SBAR form cp - Leadership Thank You Letter cp Addendum: 08/21/2024 17:18 Co-signature as Attending Physician, Finn Hare MD I reviewed the patient's care r n provided by the Advanced Practice Provider and agree with the diagnosis and treatment plan. Signatures: Dispatcher [employer] Finn Cardozo MD MD rn Page, Corey, PA PA cp Radha Escobar rv1 Mary Rollins RN RN me1 Corrections: (The following items were deleted from the chart) 08/15 14:56 14:56 BASIC METABOLIC PANEL+C.LAB.BRZ ordered. EDMS EDMS 14:56 14:56 CBC+H.LAB.BRZ ordered. EDMS EDMS 14:56 14:56 HEPATIC FUNCTION+C.LAB.BRZ ordered. EDMS EDMS 14:56 14:56 MAGNESIUM+C.LAB.BRZ ordered. EDMS EDMS 14:56 14:56 PROTIME (+INR)+COAG.LAB.BRZ ordered. EDMS EDMS 14:56 14:56 Troponin High Sensitivity+C.LAB.BRZ ordered. EDMS EDMS 14:56 14:56 Urinalysis+U.LAB.BRZ ordered. EDMS EDMS 14:56 14:56 Test, Urine+UC.LAB.BRZ ordered. EDMS EDMS 14:56 14:56 Chest Single View+RAD.RAD.BRZ ordered. EDMS EDMS 15:57 15:57 Angio Aorta For Dissection+CT.RAD.BRZ ordered. EDMS EDMS 20:27 20:20 Telemetry/MedSurg (observation) cp rv1 20:27 20:20 cp rv1 08/17 02:11 08/15 13:00 Associated signs and symptoms: Pertinent positives: dizziness, headache, cp cp
--- NOTE | 2024-08-15 20:21 | ER ---
Nurse's Notes [facility] Name: Zeynep Negron Age: 44 yrs Sex: Female : 1980 Arrival Date: 08/15/2024 Time: 14:37 Bed 16 Private MD: Diagnosis: Chest pain, unspecified;Abnormal electrocardiogram [ECG] [EKG] Presentation: 08/15 14:48 Chief complaint: EMS states: toned out for midsterna' chest pain, 10/10, radiates to me1 jaw and "rest of body". c/o LOO and body aches. Coronavirus screen: Vaccine status: Patient reports receiving the 2nd dose of the covid vaccine. Ebola Screen: No symptoms or risks identified at this time. Initial Sepsis Screen: Does the patient meet any 2 criteria? HR > 90 bpm. Does the patient have a suspected source of infection?. Risk Assessment: Do you want to hurt yourself or someone else? Patient reports no desire to harm self or others. Onset of symptoms was August 15, 2024 at 13:30. 14:48 Method Of Arrival: [place] [facility] [place] Acuity: JED 3 me1 Triage Assessment: 14:50 General: Appears uncomfortable, well groomed, well developed, well nourished, Behavior me1 is calm, cooperative, appropriate for age. Pain: Complains of pain in chest Pain radiates to right jaw Pain currently is 10 out of 10 on a pain scale. Quality of pain is described as sharp, Pain began suddenly, Is continuous. EENT: No signs and/or symptoms were reported regarding the EENT system. Neuro: Level of Consciousness is awake, alert, obeys commands, Oriented to person, place, time, situation, Appropriate for age. Neuro: Reports headache. Cardiovascular: Patient's skin is warm and dry. Cardiovascular: Reports chest pain. Respiratory: Airway. GI: No signs and/or symptoms were reported involving the gastrointestinal system. : No signs and/or symptoms were reported regarding the genitourinary system. Derm: Skin is intact, is healthy with good turgor, Skin is pink, warm \\T\\ dry. Musculoskeletal: No signs and/or symptoms reported regarding the musculoskeletal system. LEADERSHIP PROGRAM INTERNSHIP: 21:34 LMP N/A - Hysterectomy, Not me1 Historical: - Allergies: 14:50 Codeine; me1 14:50 Hydrocodone-Acetaminophen; me1 - PMHx: 14:50 Aneurysm; CVA; me1 - PSHx: 14:50 ablation (l ); Appendectomy; partial hysterectomy; Cholecystectomy; me1 - Immunization history:: Adult Immunizations up to date. - Infectious Disease History:: Denies. - Social history:: Smoking status: Patient denies any tobacco usage or history of. Screenin:55 [facility] ED Fall Risk Assessment (Adult) History of falling in the last 3 months, me1 including since admission No falls in past 3 months (0 pts) Confusion or Disorientation No (0 pts) Intoxicated or Sedated No (0 pts) Impaired Gait No (0 pts) Mobility Assist Device Used No (0 pt) Altered Elimination No (0 pt) Score/Fall Risk Level 0 - 2 = Low Risk Maintained a safe environment, Provided non-skid footwear, Hourly rounding (assess needs \\T\\ fall precautionary measures) done. Abuse screen: Denies threats or abuse. Nutritional screening: No deficits noted. Tuberculosis screening: No symptoms or risk factors identified. Assessment: 14:55 General: See triage assessment. . Pain: Complains of pain in chest. me1 Vital Signs: 14:48 BP 154 / 93; Pulse 88; Resp 24; Temp 98.3; Pulse Ox 100% ; Weight 86.18 kg; Height 5 me1 ft. 4 in. ; Pain 10/10; 15:00 BP 138 / 76; Pulse 69; Resp 16; Pulse Ox 100% ; me1 15:21 Pain 2/10; me1 16:00 BP 134 / 81; Pulse 76; Resp 15; Pulse Ox 97% ; me1 17:10 BP 125 / 80; Pulse 75; Resp 16; Pulse Ox 99% ; me1 18:00 BP 120 / 80; Pulse 72; Resp 16; Pulse Ox 95% ; me1 19:00 BP 122 / 80; Pulse 67; Resp 16; Pulse Ox 96% ; me1 20:00 BP 126 / 85; Pulse 72; Resp 15; Pulse Ox 97% ; me1 21:00 BP 126 / 90; Pulse 85; Resp 15; Pulse Ox 97% ; me1 14:48 Body Mass Index 32.61 (86.18 kg, 162.56 cm) me1 14:48 Pain Scale: Adult me1 15:21 Pain Scale: Adult me1 ED Course: 14:48 Patient arrived in ED. me1 14:49 [facility] cp 14:50 Finn Hare MD is Attending Physician. cp 14:50 Triage completed. me1 14:50 Arm band placed on Patient placed in an exam room. me1 14:55 Patient has correct armband on for positive identification. Bed in low position. Call me1 light in reach. Side rails up X2. Provided Education on: POC. Verbalized understanding. . Client placed on continuous cardiac and pulse oximetry monitoring. NIBP monitoring applied. playground monitor on. Pulse ox on. NIBP on. 14:55 No provider procedures requiring assistance completed. Patient maintains SpO2 me1 saturation greater than 95% on room air. 15:06 Initial lab(s) drawn, by me, sent to lab. Inserted saline lock: 22 gauge in right me1 antecubital area, using aseptic technique. 15:20 Mary Rollins, EDWIN is Primary Nurse. me1 15:33 EKG done, by ED staff, reviewed by Bill MANNING. me1 15:46 XRAY Chest (1 view) In Process Unspecified. EDMS 16:47 Urinalysis w/ reflexes Sent. me1 16:47 Urine collected: clean catch specimen, cloudy. me1 17:01 CT Head Brain wo Cont In Process Unspecified. EDMS 17:01 CT Aorta for Dissection In Process Unspecified. EDMS 18:53 Troponin High Sensitivity Sent. me1 18:53 Repeat lab(s) drawn. by me, sent to lab. me1 20:19 Fernando Neri MD is Hospitalizing Provider. cp 08/16 13:44 IV discontinued, intact, bleeding controlled, No redness/swelling at site. Pressure kc6 dressing applied. Administered Medications: 08/15 15:11 Drug: Ondansetron IVP 4 mg IVP once; over 2 minutes Route: IVP; Site: right antecubital;me1 15:20 Follow up: Response: No adverse reaction; Nausea is decreased me1 15:11 Drug: NS 0.9% IV 1000 ml IV at 1 bolus Per protocol; to be given as a bolus over 60 me1 minutes Route: IV; Rate: 1 bolus; Site: right antecubital; 17:10 Follow up: Response: No adverse reaction; IV Status: Completed infusion; IV Intake: me1 1000ml 15:12 Drug: morphine IVP or IV 4 mg IVP once over 4 mins Route: IVP; Infused Over: 4 mins; me1 Site: right antecubital; 15:21 Follow up: Pain 2/10 Adult; Response: No adverse reaction; Pain is decreased me1 18:53 Drug: Rocephin IV 1 grams IV at calculated rate once; Given slow IV push per pharmacy me1 instructions Route: IV; Rate: calculated rate; Site: right antecubital; 18:55 Follow up: Response: No adverse reaction; IV Status: Completed infusion me1 Medication: 14:55 VIS not applicable for this client. me1 Intake: 17:10 IV: 1000ml; Total: 1000ml. me1 Outcome: 20:20 Decision to Hospitalize by Provider. 08/16 13:44 Discharged to home ambulatory, with family, kc6 Condition: good Discharge instructions given to patient, family, Instructed on discharge instructions, follow up and referral plans. Demonstrated understanding of instructions, follow-up care, 13:44 Patient left the ED. kc6 Signatures: Dispatcher [employer] EDBill Garcia PA PA Saloni Torres RN RN kc6 Mary Rollins RN RN me1
[2024-08-15] MEDS ORDERED: ONDANSETRON 4 MG/2 ML VIAL IV PRN (20:52)
--- NOTE | 2024-08-15 20:59 | P.HP ---
Certification for Inpatient Patient admitted to: Observation With expected LOS: <2 Midnights Practitioner: I am a practitioner with admitting privileges, knowledge of patient current condition, hospital course, and medical plan of care. Services: Services provided to patient in accordance with Admission requirements found in Title 42 Section 412.3 of the Code of Federal Regulations Patient History Date of Service: 08/15/24 Reason for admission: CP History of Present Illness: 44-year-old female with past medical history of Stroke , Aneurysm, status post clipping was brought to ER with chest pain. Located retrosternally with no radiation. Denies any diaphoresis. Pain is pressure-like feeling. 6 of 10 in severity Denies any shortness of breath. No nausea vomiting or diarrhea. At the time of interview the pain is 3 out of 10 patient was assessed in the ER and is admitted for further management of chest pain to rule out ACS Allergies codeine Allergy (Verified 01/23/24 22:12) Hives/Rash hydrocodone Adverse Reaction (Intermediate, Verified 01/23/24 22:12) Hives/Rash Hydrocodone-Acetaminophen Adverse Reaction (Intermediate, Uncoded 01/23/24 22:12) Hives/Rash Home Medications: Ciprofloxacin HCl 500 mg PO BID 12 Days #24 01/25/24 - Past Medical/Surgical History Diabetic: No Past Medical History: Reviewed- Non-Contributory -: Stroke 2017 Past Surgical History: Reviewed- Non-Contributory -: Cholecystectomy 2018 - Family History Family History: Reviewed- Non-Contributory - Social History Smoking Status: Never smoker Alcohol use: No Caffeine use: Yes Review of Systems 10-point ROS is otherwise unremarkable Physical Examination - Vital Signs Temperature: 97.2 F Blood Pressure: 132/78 Pulse: 76 Respirations: 18 Pulse Ox (%): 94 - Physical Exam General: Alert, In no apparent distress, Oriented x3 HEENT: Atraumatic, Normocephalic Neck: Supple, JVD not distended Respiratory: Clear to auscultation bilaterally, Normal air movement Cardiovascular: Regular rate/rhythm, Normal S1 S2 Capillary refill: <2 Seconds Gastrointestinal: Soft and benign, W/out hepatosplenomegaly Musculoskeletal: No clubbing, No swelling Integumentary: No rashes Neurological: Normal speech, Normal strength at 5/5 x4 extr, Normal affect Lymphatics: No axilla or inguinal lymphadenopathy - Studies Laboratory Data (last 24 hrs) 11/20/24 11/20/24 11/20/24 15:04 15:04 15:04 WBC 9.30 Hgb 14.1 Hct 40.8 Plt Count 336 PT 11.6 INR 1.04 Sodium 136 Potassium 3.7 BUN 10 Creatinine 0.64 Glucose 105 Magnesium 2.0 Total Bilirubin 0.4 AST 15 ALT 17 Alkaline Phosphatase 67 Assessment and Plan - Plan Chest pain rule out ACS Will trend cardiac enzymes Will monitor telemetry Started on aspirin and statin EKG did not show any acute changes suggestive of ischemia Will get an echocardiogram Cardiology consult History of AV malformation History of stroke 70 management Monitor closely Pyelonephritis CT abdomen findings noted Will start on IV antibiotic Will obtain cultures Change antibiotic as per sensitivity GI/DVT prophylaxis Advanced directive full code Discharge Plan: Home Plan to discharge in: 48 Hours - Advance Directives Does patient have a Living Will: No Does patient have a Durable POA for Healthcare: No - Code Status/Comfort Care Code Status: Full Code Time Spent Managing Pts Care (In Minutes): 48
[2024-08-15 22:04] VITALS: BMI 32.5
[2024-08-16] MEDS ORDERED: ACETAMINOPHEN 325 MG TABLET ONE (01:42)
[2024-08-16] MEDS: ACETAMINOPHEN 325 MG TABLET PO PRN (01:58)
[2024-08-16 05:48] LABS: Absolute Eosinophils 0.1 K/uL (0-0.5); Absolute Lymphocytes (CBC) 2.4 K/uL (0.7-4.9); Absolute Monocytes 0.5 K/uL (0.1-1.3); Absolute Neutrophil 4.9 K/uL (1.8-8.0); Basophils % 0.5 % (0-1.3); Eosinophils % 1.3 % (0-4.4); Hematocrit 37.3 % (36.0-45.0); Hemoglobin 12.8 g/dL (12.0-15.0); Lymphocytes % 30.3 % (15.3-44.8); MCHC 34.3 g/dL (32.0-36.0); MCV 87.2 fL (80-100); MPV 7.1 fL (7.6-11.3); Monocytes % 6.3 % (3.3-12.3); Neutrophils % 61.6 % (41.7-73.7); Platelets 349 thou/uL (152-406); RBC Red Blood Cell Count 4.28 M/uL (3.86-4.86); Red Cell Distribution Width 12.4 % (12.1-15.2)
[2024-08-16 06:09] LABS: Albumin 3.1 g/dL (3.4-5.0); Albumin/Globulin Ratio 0.8 (1.1-1.8); Anion Gap 8.3 mEq/L (5.0-15.0); Bilirubin Total 0.3 mg/dL (0.2-1.0); Globulin 3.7 g/dL (2.3-3.5); Potassium 3.3 mEq/L (3.5-5.1); Protein, Total 6.8 g/dL (6.4-8.2); Troponin High Sensitivity 3.1 pg/mL (<58.9)
[2024-08-16] MEDS ORDERED: ENOXAPARIN 40 MG/0.4 ML SQ ONE (08:17)
[2024-08-16] MEDS: ENOXAPARIN 40 MG/0.4 ML SQ SCH (08:43)
--- NOTE | 2024-08-16 10:49 | P.CNS ---
Date of Consult: 08/16/24 Chief Complaint: CP History of Present Illness: patient with no significant PMH except for intracranial aneurysm s/p clipping, presented with chest pain that started yesterday, sharp in nature, mid chest, has been going on since yesterday, no radiation, reproducible on exam. Allergies codeine Allergy (Verified 01/23/24 22:12) Hives/Rash hydrocodone Adverse Reaction (Intermediate, Verified 01/23/24 22:12) Hives/Rash Hydrocodone-Acetaminophen Adverse Reaction (Intermediate, Uncoded 01/23/24 22:12) Hives/Rash Home medications list reviewed: Yes Home Medications: Ciprofloxacin HCl 500 mg PO BID 12 Days #24 01/25/24 - Past Medical/Surgical History Diabetic: No -: Stroke 2016 -: Cholecystectomy 2017 - Social History Smoking Status: Never smoker Alcohol use: No Caffeine use: Yes Review of Systems 10-point ROS is otherwise unremarkable Physical Examination Temp Pulse Resp BP Pulse Ox 98.2 F 71 19 140/87 100 08/16/24 08:00 08/16/24 08:00 08/16/24 08:00 08/16/24 08:00 08/16/24 08:00 General: Alert, In no apparent distress HEENT: Atraumatic, PERRLA, Mucous membr. moist/pink, EOMI, Sclerae nonicteric Neck: Supple, 2+ carotid pulse no bruit, No LAD, Without JVD or thyroid abnormality Respiratory: Clear to auscultation bilaterally, Normal air movement Cardiovascular: Regular rate/rhythm, Normal S1 S2 Gastrointestinal: Normal bowel sounds, No tenderness Musculoskeletal: No tenderness Integumentary: No rashes Neurological: Normal gait, Normal speech, Normal tone, Normal affect Lymphatics: No axilla or inguinal lymphadenopathy Laboratory Data (last 24 hrs) 08/15/24 08/15/24 08/15/24 15:04 15:04 15:04 WBC 9.30 Hgb 14.1 Hct 40.8 Plt Count 336 PT 11.6 INR 1.04 Sodium 136 Potassium 3.7 BUN 10 Creatinine 0.64 Glucose 105 Magnesium 2.0 Total Bilirubin 0.4 AST 15 ALT 17 Alkaline Phosphatase 67 - Problems (1) Chest pain Current Visit: Yes Status: Acute Plan: Non cardiac, MSK in nature, reproducible on exam, EKG and Enzymes are negative. Naproxen 200 mg po BID for 7 days No further cardiac work up needed.
--- NOTE | 2024-08-16 11:01 | EKG ---
Test Date: 2024-08-15 Test Time: 15:29:22 Yarn Inspector: MEASUREMENT RESULTS: Intervals: Rate: 81 WI: 154 QRSD: 80 QT: 366 QTc: 425 [place]: P: 58 WI: 154 QRS: 18 T: 43 INTERPRETIVE STATEMENTS: Normal sinus rhythm Nonspecific ST and T wave abnormality Abnormal ECG Compared to ECG 01/01/2022 16:54:42 ST (T wave) deviation now present Electronically Signed On 08-16-24 11:00:41 AGRONOMIST by Des Vazquez
[2024-08-16] MEDS: FLU (Fluarix Triv) TS24-25(6MOS UP)/PF 45 MCG/0.5 ML Syringe IM ONE (12:00)
--- NOTE | 2024-08-16 12:38 | P.DS ---
Admission Date: 08/15/24 Discharge Date: 08/16/24 Disposition: ROUTINE DISCHARGE Discharge Condition: GOOD Reason for Admission: CP Brief History of Present Illness: This is a 44 years old female patient with past medical history significant for stroke, brain aneurysm status post mitral clipping who presented to emergency room for evaluation of chest pain for 3 days. Twelve-lead EKG revealed no ischemic change, serial troponin normal x 3. Her chest pain is reproducible by palpation consistent with left left costochondritis. CT of abdomen revealed 1.5 cm renal calculi in the right renal pelvis with mild hydronephrosis, normal urinary function, UA was concern for UTI however patient does not have any urinary symptoms at all. Hospital Course: Her chest pain appears to be improved during observation without any intervention. Cardiology saw the patient who also agreed with noncardiac chest pain and recommend discharge and outpatient follow-up. She is to see urologist as outpatient for a right renal stone (1.5 cm )with mild hydronephrosis. She does not need any antibiotics as patient does not have a clinical UTI. Perinephric fat stranding is more likely related to renal stone than acute py elonephritis. She was prescribed naproxen 550 twice daily as needed on #20 and lidocaine 4% patch. Discharge diagnosis #1 noncardiac chest pain, left costochondritis #2 asymptomatic right nephrolithiasis with mild hydronephrosis and normal renal function. #3 abnormal urinalysis due to #2 Vital Signs/Physical Exam: Temp Pulse Resp BP Pulse Ox 98.2 F 71 19 140/87 100 08/16/24 08:00 08/16/24 08:00 08/16/24 08:00 08/16/24 08:00 08/16/24 08:00 Other Physical/Emotional Findings: - Physical Exam. General: Not acutely ill looking, in no apparent distress,. HEENT: Normocephalic, atraumatic,. Neck: Supple, without JVD or goiter or thyroid mass. Respiratory: Normal breathing effort, clear to auscultation bilaterally, no crackles no wheezing or rhonchi. Cardiovascular: Regular rate and rhythm, S1, S2 normal, no murmur no gallop. Gastrointestinal: Normal bowel sounds, nondistended, nontender, No ascites, , No masses, no hepatosplenomegaly, no CVA tenderness. Musculoskeletal: No clubbing, No peripheral edema, reproducible pain by palpation in the left costochondral junction. Integumentary: No rashes. Lymphatics: No axilla or cervical lymphadenopathy. Neurology; alert awake oriented x3, no focal neurologic deficit Laboratory Data at Discharge: WBC 8.00 thou/uL (4.3-10.9) 08/16/24 05:30 Hgb 12.8 g/dL (12.0-15.0) D 08/16/24 05:30 Hct 37.3 % (36.0-45.0) 08/16/24 05:30 Plt Count 349 thou/uL (152-406) 08/16/24 05:30 PT 11.6 SECONDS (9.4-12.5) 08/15/24 15:04 INR 1.04 08/15/24 15:04 Sodium 139 mEq/L (136-145) 08/16/24 05:30 Potassium 3.3 mEq/L (3.5-5.1) L 08/16/24 05:30 BUN 11 mg/dL (7-18) 08/16/24 05:30 Creatinine 0.69 mg/dL (0.55-1.02) 08/16/24 05:30 Glucose 142 mg/dL (74-106) H 08/16/24 05:30 Magnesium 2.0 mg/dL (1.6-2.4) 08/15/24 15:04 Total Bilirubin 0.3 mg/dL (0.2-1.0) 08/16/24 05:30 AST 13 U/L (15-37) L 08/16/24 05:30 ALT 15 U/L (13-56) 08/16/24 05:30 Alkaline Phosphatase 71 U/L (45-117) 08/16/24 05:30 Home Medications: Lidocaine 4% Patch [Lidoderm 5% Patch*] 1 patch TD DAILY 10 Days #10 patch 08/16/24 Naproxen Sodium 550 mg PO BID PRN #20 tab 08/16/24 New Medications: Lidocaine 4% Patch [Lidoderm 5% Patch*] 1 patch TD DAILY 10 Days #10 patch Naproxen Sodium 550 mg PO BID PRN #20 tab PRN Reason: Pain Scale 5-7 (Moderate) Followup: NONE,NONE [Primary Care Provider] -
[2024-08-16 12:40] VITALS: BP 119/83; TEMP 98.4
[2024-08-16 14:55] VITALS: O2SAT 97
[2024-08-16] MEDS ORDERED: ATORVASTATIN 40 MG TAB PO SCH (21:00)
[2024-08-16] MEDS ORDERED: ASPIRIN EC 81 MG TAB PO SCH (21:45)
== END 2024-08-16 13:41 | disposition home or self-care (01) ==
LOC: ER 14:37 → ERHOLD 20:52
PROVIDERS: ADMIT Family Medicine; ATTEND Internal Medicine
DX: R07.89 Other chest pain (principal); M94.0 Chondrocostal junction syndrome [Tietze]; N12 Tubulo-interstitial nephritis, not specified as acute or chronic; N13.2 Hydronephrosis with renal and ureteral calculous obstruction; Z88.5 Allergy status to narcotic agent; Z86.73 Personal history of transient ischemic attack (TIA), and cerebral infarction without residual deficits
CPT/HCPCS: 36415; 70450; 71045; 71275; 74175; 80048; 80053; 80076; 81001; 81025; 83735; 84484; 85025; 85610; 87077; 87086; 87088; 87186; 93005; 96361; 96374; 96375; 99285; G0378; J0696; J1650; J2405; J7030; Q9967